=== PATIENT | female | born 1985 | race African-American/Black ===

== ENCOUNTER 2016-04-06 09:33 | Emergency (ER) | payer MEDICAID, OTHER ==
[~2016-04-06 09:33] MED LIST: UNIS25TA2 PO; VITA50TA30 PO
--- NOTE | 2016-04-06 10:22 | PD ---
HPI Chief Complaint nausea, vomiting x3, cramping Date Seen: Apr 06, 2016 Time Seen: 10:31 Travel History International Travel<30 Days: No Contact w/Intl Traveler<30Days: No Known Affected Area: No History of Present Illness HPI 30 year-old at 03/04 (JOSÉ MIGUEL 06/12/16) presented to OB ED with nausea, vomiting, and cramping. It came on acutely at 9am, one hour after eating sausage and egg sandwich at [employer]". Vomit is thick, non-bloody, contains food she just ate. She is still experiencing nausea and cramping, as well as frontal headache that came on after vomiting. Denies vaginal bleeding, loss of fluid or regular contractions. Still feeling baby move. Also having thick vaginal discharge, denies dysuria or frequency. She saw her OB Dr. Marquez at [facility] recently on 04/04. Para: 4 : 7 History Past Medical History Narrative Medical Insomnia Obstetric History Obstetric History History 2 : 7 AB Spontaneous: 0 Term: 4 Mult Births: 0 : 0 Ectopic: 1 AB Induced: 1 Living Children: 4 Past Pregnancies 3 Delivery Gest. Outcome Route Length of Anesthesia Delivery Date Age/Wks # Weight/Sex Labor Location Labor 12/26/04 40 1 Live Vaginal 7 lbs 14 oz - M Epidural [place] No 04/26/06 39 1 Live Vaginal 6 lbs 13 oz - F 9 Hrs Epidural sigifredo No 03/17/12 39 1 Live Vaginal 6 lbs 13 oz - M 5 Hrs Epidural [place] No 03/04/14 39.6 1 Live Vaginal 6 lbs 9 oz - F Epidural sigifredo No Past Surgical History Narrative Surgical Denies Family History Narrative Family History see EMR Social History Alcohol Use: No Tobacco Use: No Substance Abuse: Yes (Marijusol, denies during ) Allergies-Medications (Allergen,Severity, Reaction): Coded Allergies: No Known Allergies (Verified , 04/04/16) Home Meds Active Scripts Promethazine 12.5 Mg Tab12.5 Mg PO Q4H PRN (NAUSEA OR VOMITING) #25 TAB Ref 0 Prov:Nydia Buenrostro MD R1 04/06/16 Promethazine Supp 12.5 Mg Supp12.5 Mg RECTAL Q4H PRN (NAUSEA OR VOMITING) #6 SUPP Ref 0 Prov:Nydia Buenrostro MD R1 04/06/16 W/O A W/ Fe Asparto G (Prenate Pixie 10-0.6-0.4-200 mg)1 Cap Cap Sample #2 Prov:Suyapa Bran 04/04/16 Doxylamine Succinate (Sleep) (Unisom)25 Mg Tab12.5 Mg PO HS PRN (NAUSEA) #30 TAB Ref 1 Prov:Ricky Franks MD R1 03/02/16 Pyridoxine (Vitamin B-6)50 Mg Tab50 Mg PO DAILY #30 TAB Ref 3 Prov:Ricky Franks MD R1 03/02/16 Review of Systems Except as stated in HPI: all other systems reviewed are Neg Physical Exam Narrative GENERAL: Adult gravid female who looks tired/ill. Frowning, appears very tired. SKIN: Warm and dry. No pallor. HEAD: Normocephalic and atraumatic. EYES: No scleral icterus. No injection or drainage. ENT: No nasal drainage noted. Mucous membranes minimally moist. Airway patent. NECK: Supple, trachea midline. No JVD. CARDIOVASCULAR: Regular rate and rhythm without murmurs, gallops, or rubs. Cap refill <2 sec RESPIRATORY: Breath sounds equal bilaterally. No accessory muscle use. BREASTS: Bilateral exam showed no masses , no retractions, no nipple discharge. ABDOMEN/GI: Abdomen soft, non-tender, bowel sounds present, no rebound, no guarding GENITOURINARY: FHT's: Category: [-] I Baseline: [-] 145 Reactive: [-] Yes, with accels Variability: [-] Moderate Decels: [-] No EXTREMITIES: No cyanosis or edema. BACK: Nontender without obvious deformity NEUROLOGICAL: Motor and sensory grossly within normal limits Awake and oriented , not lethargic. Data Data Vital Signs Reviewed: Yes Orders Vital Signs (Adult) .ON ADMISSION (04/06/16 10:22) ^ Labor Status (04/06/16 10:22) ^ Hydration (04/06/16 10:22) Ondansetron Odt (Zofran Odt) (04/06/16 10:30) Acetaminophen (Tylenol) (04/06/16 10:30) Lactated Ringer's 1000 Ml Inj (Lr 1000 M (04/06/16 11:00) Prochlorperazine Inj (Compazine Inj) (04/06/16 11:00) Fentanyl Inj (Fentanyl Inj) (04/06/16 11:00) Wet Prep Profile (04/06/16 11:40) [facility] Medical Record Reviewed: Yes Interpretation(s) 30y AA at 30weeks presenting with nausea/vomiting in classic presentation of acute food poisoning (gastroenteritis). Treatment with supportive care as below. Likely self-limited, to resolve within 24-48 hours. Thick vaginal discharge was evaluated via wet-prep for evidence of Plan Plan: -Hydration with 1L Lactated Ringers IV x1 + PO Hydration -Nausea control with Zofran ODT + Compazine 10mg IV -Pain control with 25 mcg Fentanyl IV + Tylenol 500mg x1 -Supportive care with labor status monitoring and vital signs -Sterile speculum exam and wet prep to evaluate thick vaginal discharge -Anticipate discharge home with Phenergan PO and Phenergan suppository for nausea, encourage PO hydration with water, Tylenol 500mg q6h, as needed, for pain, not to exceed 2g/day SDW: Dr Mixon, Dr Cobb Diagnosis Diagnosis: Primary Impression: Food poisoning Additional Impressions: 30 weeks gestation of Mild dehydration Disposition: DISCHARGE HOME Scripts Promethazine 12.5 Mg Tab12.5 Mg PO Q4H PRN (NAUSEA OR VOMITING) #25 TAB Ref 0 Prov:Nydia Buenrostro MD R1 04/06/16 Promethazine Supp 12.5 Mg Supp12.5 Mg RECTAL Q4H PRN (NAUSEA OR VOMITING) #6 SUPP Ref 0 Prov:Nydia Buenrostro MD R1 04/06/16 Nydia Buenrostro MD R1 Apr 06, 2016 10:22
[2016-04-06] MEDS ORDERED: ACETAMINOPHEN 500 MG CPLT PO ONE (10:30)
[2016-04-06] MEDS ORDERED: ONDANSETRON ODT 4 MG TAB PO PRN (10:30)
--- NOTE | 2016-04-06 10:59 | PD ---
History of Present Illness Date Seen: Apr 06, 2016 History of Present Illness Pt with N& V today , no bleeding . SROM , CTXs , had no meds at home for this. Sees [facility] Will IV hydrate, IV zofran & compazine , Fentanyl Home with Rx for phenergan po & supp Seen with Fam Med Residents agree with eval and plan. Mehdi Mixon II, MD Apr 06, 2016 10:59
[2016-04-06] MEDS ORDERED: LACTATED RINGER'S 1000 ML INJ 1,000 ML IV ONE (11:00)
[2016-04-06] MEDS ORDERED: PROCHLORPERAZINE INJ 10 MG/2 ML VIAL IVS ONE (11:00)
[2016-04-06] MEDS ORDERED: PROM12.54 PO (11:03)
[2016-04-06] MEDS ORDERED: PROM5SUP2 RECTAL (11:03)
[2016-04-06 11:36] VITALS: BP 101/50; PULSE 77; RESP 17; TEMP 98.4
== END 2016-04-06 13:15 | disposition home or self-care (01) ==
LOC: HOBED 09:33
DX: O21.1 Hyperemesis gravidarum with metabolic disturbance (principal); Z3A.30 30 weeks gestation of pregnancy; A05.9 Bacterial foodborne intoxication, unspecified
CPT/HCPCS: 87210; 96361; 96374; 99284; J0780; J3010; J7120

== ENCOUNTER 2016-04-22 17:54 | Inpatient (IN) | payer MEDICAID ==
[~2016-04-22] VITALS: Ht 157.5 cm; Wt 68.6 kg
[2016-04-22] VITALS (75 sets, daily range): BP systolic 53–125; BP diastolic 28–90; PULSE 97–202; RESP 16–28; TEMP 98.1–98.2; O2SAT 99–100
[~2016-04-22 17:54] MED LIST changes: +PROM12.54 PO; +PROM5SUP2 RECTAL
[2016-04-22] MEDS ORDERED: LACTATED RINGER'S 1000 ML INJ 1,000 ML IV PRN (18:32)
[2016-04-22] MEDS ORDERED: LACTATED RINGER'S 1000 ML INJ 1,000 ML IV SCH (18:32)
[2016-04-22] MEDS ORDERED: LIDOCAINE HCL 1% 50 ML VIAL INFIL PRN (18:45)
[2016-04-22] MEDS ORDERED: MINERAL OIL 10 ML VIAL TOPICAL PRN (18:45)
[2016-04-22] MEDS ORDERED: SODIUM CHLORID 0.9% 500 ML INJ 500 ML IV PRN (18:45)
[2016-04-22] MEDS ORDERED: CITRIC ACID-SODIUM CITRATE LIQ 30 ML UDC PO SCH (18:45)
[2016-04-22] MEDS ORDERED: SODIUM CHLORIDE 0.9% FLUSH 5 ML FLUSH IV PRN ×2 (18:45→23:45)
[2016-04-22] MEDS ORDERED: OXYTOCIN 30 UNITS-500ML PREMIX 500 ML IV ONE ×2 (18:45→23:45)
[2016-04-22] MEDS ORDERED: LIDOCAINE HCL 1% 50 ML VIAL I-DERMAL PRN (18:45)
[2016-04-22] MEDS ORDERED: SODIUM CHLOR 0.9% 1000 ML INJ 1,000 ML IV PRN (18:52)
[2016-04-22 19:31] LABS: AUTOMATED NEUTROPHIL # 20.3 TH/MM3 (1.8-7.7); BASOPHIL % 0.1 % (0.0-2.0); EOSINOPHIL # 0.1 TH/MM3 (0-0.4); EOSINOPHIL % 0.4 % (0.0-4.0); HEMATOCRIT 26.6 % (35.0-46.0); HEMO FLAGS DIFF FINAL; LYMPHOCYTE # 2.2 TH/MM3 (1.0-4.8); MEAN CELL VOLUME 90.8 FL (80.0-100.0); MEAN CORPUSCULAR HEMOGLOBIN 30.9 PG (27.0-34.0); MONO % 7.2 % (0.0-8.0); NEUT % 83.3 % (16.0-70.0); PLATELET COUNT 150 TH/MM3 (150-450); RED BLOOD COUNT 2.93 MIL/MM3 (4.00-5.30); RED CELL DISTRIBUTION WIDTH 13.3 % (11.6-17.2); WHITE BLOOD COUNT 24.3 TH/MM3 (4.0-11.0)
--- NOTE | 2016-04-22 19:34 | HHI.HP ---
HPI Chief Complaint Abdominal pain Date Seen: Apr 22, 2016 Travel History International Travel<30 Days: No Contact w/Intl Traveler<30Days: No Known Affected Area: No History of Present Illness HPI This patient is 30-year-old black female A2 at 32-33 weeks followed for [facility] for , who is presenting with severe abdominal pain for the last several hours no bleeding or leakage of fluid. She is lety every minute area heart tones could not be discerned with toco an ultrasound was done at the bedside by me which shows no cardiac activity and a breech fetus and a large blood clot associated with the placenta. OB diagnostic has come in and confirmed the diagnosis of demise secondary to abruption Para: 3 : 6 Miscarriage: 1 History Obstetric History Obstetric History Vaginal deliveries, 1 miscarriage and 1 ectopic was treated with methotrexate that required a D&C afterwards. Past Surgical History Narrative Surgical D&C Family History Family History: Negative Social History Narrative Social History Patient does have a history of marijuana use in the past Alcohol Use: No Tobacco Use: Yes Substance Abuse: No Allergies-Medications (Allergen,Severity, Reaction): Coded Allergies: No Known Allergies (Verified , 04/22/16) Home Meds Active Scripts Promethazine 12.5 Mg Tab12.5 Mg PO Q4H PRN (NAUSEA OR VOMITING) #25 TAB Ref 0 Prov:Nydia Buenrostro MD R1 04/06/16 Promethazine Supp 12.5 Mg Supp12.5 Mg RECTAL Q4H PRN (NAUSEA OR VOMITING) #6 SUPP Ref 0 Prov:Nydia Buenrostro MD R1 04/06/16 W/O A W/ Fe Asparto G (Prenate Pixie 10-0.6-0.4-200 mg)1 Cap Cap Sample #2 Prov:Suyapa Bran 04/04/16 Doxylamine Succinate (Sleep) (Unisom)25 Mg Tab12.5 Mg PO HS PRN (NAUSEA) #30 TAB Ref 1 Prov:Ricky Franks MD R1 03/02/16 Pyridoxine (Vitamin B-6)50 Mg Tab50 Mg PO DAILY #30 TAB Ref 3 Prov:Ricky Franks MD R1 03/02/16 Review of Systems General / Constitutional: No: Fever, Weight Gain, Chills, Other Eyes: No: Diploplia, Blurred Vision, Visual changes, Pain, Photophobia HENT: No: Headaches, Vertigo, Lightheadedness Cardiovascular: No: Irregular Rhythm, Chest Pain or Discomfort, Palpitations, Tachycardia, Syncope, Varicosities, Edema, Cyanosis Respiratory: No: Cough, Short of Breath, Other Gastrointestinal: Abdominal Pain, No: Nausea, Vomiting, Diarrhea Genitourinary: No: Decreased Urinary Output, Oliguria Musculoskeletal: No: Limited ROM, Weakness, Cramping, Edema, Pain Skin: No Rash, No Itching, No Dryness, No Lumps, No Change in Pigmentation, No Change in Nails, No Alopecia, No Lesions Neurologic: No: Weakness, Dizziness, Syncope, Focal Abnormalities, Coordination Problem, Headache, Slurred Speech, Seizures Psychiatric: No: Depression, Suicidal Ideations, Homicidal Ideation Endocrine: No: Heat Intolerance, Cold Intolerance, Polydipsia, Polyuria, Other Physical Exam Vital Signs Date Time Temp Pulse Resp B/P Pulse Ox O2 Delivery O2 Flow Rate FiO2 04/22/16 18:30 20 04/22/16 18:17 104 113/72 Narrative GENERAL: Well-nourished, well-developed patient who is in moderate to severe distress from severe abdominal pain. SKIN: Warm and dry. HEAD: Normocephalic and atraumatic. EYES: No scleral icterus. No injection or drainage. ENT: No nasal drainage noted. Mucous membranes pink. Airway patent. NECK: Supple, trachea midline. No JVD. CARDIOVASCULAR: Regular rate and rhythm without murmurs, gallops, or rubs. RESPIRATORY: Breath sounds equal bilaterally. No accessory muscle use. BREASTS: Bilateral exam showed no masses , no retractions, no nipple discharge. ABDOMEN/GI: Abdomen soft, tender, bowel sounds present, no rebound, no guarding Gravid to [32-] weeks size Fundal Height: [-32] uterus is tender it's very firm continually GENITOURINARY: External Genitalia: intact and normal in appearance , there is no bleeding , no blood in vagina Cervix: [-Cervix dilated loose 1 cm] Dilatation: [-1] Effacement: [-70] Station: [-3] Presentation: [-breech] Membranes: [intact ] Uterine Contractions: [Lety every minute is firmly great pain-] FHT's: Absent EXTREMITIES: No cyanosis or edema. BACK: Nontender without obvious deformity. No CVA tenderness. NEUROLOGICAL: Awake and alert. Motor and sensory grossly within normal limits. Five out of 5 muscle strength in all muscle groups. Normal speech. Data Data Orders Admit To Inpatient (04/22/16 ) Vital Signs (Adult) .Per protocol (04/22/16 18:32) ^ Amnioinfusion (04/22/16 18:32) Urinary Catheter Management .ONCE (04/22/16 18:32) Lactated Ringer's 1000 Ml Inj (Lr 1000 M (04/22/16 18:32) Lactated Ringer's 1000 Ml Inj (Lr 1000 M (04/22/16 18:32) Sodium Chlorid 0.9% 500 Ml Inj (Ns 500 M (04/22/16 18:45) Sodium Chlor 0.9% 1000 Ml Inj (Ns 1000 M (04/22/16 18:52) Lidocaine 1% Inj (50 Ml) (Xylocaine 1% I (04/22/16 18:45) Citric Acid-Sodium Citrate Liq (Bicitra (04/22/16 18:45) Fentanyl Inj (Fentanyl Inj) (04/22/16 18:45) Fentanyl Inj (Fentanyl Inj) (04/22/16 18:45) Complete Blood Count With Diff (04/22/16 18:32) Hold Clot (04/22/16 18:32) Abo/Rh Blood Type (04/22/16 18:32) Urinalysis - C+S If Indicated (04/22/16 18:32) Type And Screen (04/22/16 18:32) Resp Oxygen Non Rebreathe Mask (04/22/16 ) ^ Epidural / Intrathecal Infus (04/22/16 18:32) Oxytocin 30 Units-500ml Premix (Pitocin (04/22/16 18:45) Lidocaine 1% Inj (50 Ml) (Xylocaine 1% I (04/22/16 18:45) Light Mineral Oil (Muri-Lube Oil) (04/22/16 18:45) Us Ob Limited (04/22/16 ) Admit To Inpatient (04/22/16 ) Vital Signs (Adult) Q4H (04/22/16 18:35) Activity Oob Ad Ernestine (04/22/16 18:35) Sodium Chloride 0.9% Flush (Ns Flush) (04/22/16 18:45) Sodium Chloride 0.9% Flush (Ns Flush) (04/22/16 21:00) Prothrombin Time / Inr (Pt) (04/22/16 18:35) Act Partial Throm Time (Ptt) (04/22/16 18:35) Drug Screen, Random Urine (04/22/16 18:35) Kleihauer Betke ( Hgb) (04/22/16 18:35) Fibrinogen (04/22/16 18:36) Ob (2e) Additional Admit Info (04/22/16 18:42) Vital Signs (Adult) .ON ADMISSION (04/22/16 18:51) ^ Labor Status (04/22/16 18:51) Ob/Psych Drug Screen, Urine (04/22/16 18:51) Lorazepam Inj (Ativan Inj) (04/22/16 19:00) Comprehensive Metabolic Panel (04/22/16 19:17) Labs Ultrasound done to bedside shows 32 weeks size breech fetus with no cardiac motion placenta is anterior and is been completely abrupted off the anterior wall with large blood clot involving the placenta, normal AFV , Assessment/Plan Assessment and Plan This patient is a 30-year-old black female to 32 weeks 5 days presents complaining of severe abdominal pain. On ultrasound on OB ED is noted to have no cardiac motion large placental abruption seen OB diagnostics who came in and scanned the patient. She is in severe pain from continual contractions one after another every minute. She had no vaginal bleeding whatsoever, she denies any Trauma/ car wreck anything that caused this, denies drug use. Plan to admit the patient check abruption labs place a Chand to document urine output and at this point consider vaginal delivery for this patient would not want to do a for an nonviable baby. Would administer an epidural give some IV sedation rupture her membranes and anticipate vaginal delivery as long as her lab and her condition will let us do that, this is all discussed with the patient and her mother/ family Mehdi Mixon II, MD Apr 22, 2016 19:33
[2016-04-22] MEDS ORDERED: fentaNYL 2MCG-BUPIV 0.125% INJ 100 ML ONE (19:40)
[2016-04-22 19:41] LABS: APTT (PATIENT) 47.3 SEC (24.3-30.1); INTERNATIONAL NORMALIZED RATIO 1.3 RATIO
[2016-04-22 19:58] LABS: BLOOD, URINE TRACE (NEG); COMMENT (UR) CULT NOT INDICATED; CULTURE IF INDICATED CULT NOT INDICATED; GLUCOSE,URINE NEG (NEG); HYALINE CAST, URINE 1 /lpf (RARE); KETONE, URINE TRACE mg/dL (NEG); MUCUS URINE FEW /lpf (OCC); NITRITE,URINE NEG (NEG); PH, URINE 7.5 (5.0-8.5); SQUAMOUS EPITHELIAL CELL URINE <1 /hpf (0-5); URINE COLOR YELLOW (YELLW/STRAW)
[2016-04-22] MEDS ORDERED: ePHEDrine/NS 25 MG/5 ML SYR ONE ×2 (20:31→21:14)
[2016-04-22] MEDS ORDERED: ONDANSETRON HCL 4 MG/2 ML VIAL ONE (20:35)
[2016-04-22 20:45] LABS: AMPHETAMINE, URINE NEG (NEG); BARBITURATES, URINE NEG (NEG); COCAINE, URINE NEG (NEG)
[2016-04-22] MEDS ORDERED: SODIUM CHLORIDE 0.9% FLUSH 5 ML FLUSH IV SCH (21:00)
[2016-04-22 21:09] LABS: ALKALINE PHOSPHATASE 134 U/L (45-117); ALT (GPT) 11 U/L (10-53); ANION GAP 10 MEQ/L (5-15); AST (GOT) 15 U/L (15-37); BICARBONATE 23.2 MEQ/L (21.0-32.0); BLOOD UREA NITROGEN 7 MG/DL (7-18); CHLORIDE 107 MEQ/L (98-107); GLOMERULAR FILTRATION RATE 151 ML/MIN (>89); POTASSIUM 3.8 MEQ/L (3.5-5.1); SODIUM (NA) 140 MEQ/L (136-145); TOTAL BILIRUBIN ADULT 0.3 MG/DL (0.2-1.0)
--- NOTE | 2016-04-22 21:54 | PD.LABORPN ---
Subjective Subjective Patient is a 32 week intrauterine demise secondary to abruption , she is laboring now 5 cm 80% -2 with a small parts presenting through the cervix lety every minute &she is bleeding First unit of blood is now going and second units ordered with 2 units of fresh frozen antenna cryoprecipitate due to that the DIC developing, she has has a fibrinogen of 47,000, PT PTT are out somewhat and her H&H is 9 and 26 she has an epidural for pain relief. Currently cervix 5 cm dilated but due to the bleeding she is experiencing without weight long for vaginal delivery will give her 1 hour to make significant change in the cervix she does continue would not deliver by has hysterotomy Objective Vital Signs Vital Signs Date Time Temp Pulse Resp B/P Pulse Ox O2 Delivery O2 Flow Rate FiO2 04/22/16 21:24 122 101/47 04/22/16 21:21 137 93/46 04/22/16 21:20 124 100 04/22/16 21:18 115 104/55 04/22/16 21:15 120 100/50 100 04/22/16 21:12 98.2 18 04/22/16 21:12 128 102/52 04/22/16 21:10 100 04/22/16 21:10 137 04/22/16 21:09 131 101/46 04/22/16 21:08 142 86/40 04/22/16 21:06 202 81/52 04/22/16 21:05 100 04/22/16 21:05 123 04/22/16 21:05 123 101/46 04/22/16 21:03 137 86/51 04/22/16 21:00 100 04/22/16 21:00 125 04/22/16 21:00 101/42 04/22/16 20:57 132 96/47 04/22/16 20:55 100 04/22/16 20:55 125 04/22/16 20:54 123 105/44 04/22/16 20:51 125 100/40 04/22/16 20:50 139 28 99 04/22/16 20:48 153 101/78 04/22/16 20:45 131 96/43 100 1817 20:45 130 04/22/16 20:42 102/82 04/22/16 20:40 22 04/22/16 20:40 112 100 2/18/17 20:39 112 113/50 2/18/17 20:36 111 118/58 2/18/17 20:35 100 2/18/17 20:35 134 2/18/17 20:33 142 87/32 2/18/17 20:31 157 103/33 2/18/17 20:30 143 2/18/17 20:30 99 2/18/17 20:29 88/50 2/18/17 20:27 145 65/51 2/18/17 20:25 133 2/18/17 20:25 99 2/18/17 20:24 129 106/53 2/18/17 20:21 139 84/42 2/18/17 20:20 100 2/18/17 20:20 157 2/18/17 20:18 158 91/47 2/18/17 20:17 162 72/45 2/18/17 20:15 133 2/18/17 20:15 92/38 2/18/17 20:15 100 2/18/17 20:12 118 85/62 2/18/17 20:10 127 2/18/17 20:10 100 2/18/17 20:09 188 106/90 2/18/17 20:06 106 103/56 2/18/17 18:30 20 2/18/17 18:17 104 113/72 Objective Mehdi Mixon II, MD Apr 22, 2016 21:54
[2016-04-22] MEDS ORDERED: OXYTOCIN 10 UNIT/ML AMP ONE (23:05)
[2016-04-22] MEDS ORDERED: METHYLERGONOVINE MALEATE 0.2 MG/ML VIAL ONE (23:05)
[2016-04-22] MEDS ORDERED: SIMETHICONE 80 MG CHEWABLE TAB PO PRN (23:45)
[2016-04-22] MEDS ORDERED: ONDANSETRON HCL 4 MG/2 ML VIAL IV PUSH PRN (23:45)
[2016-04-22] MEDS ORDERED: oxyCODONE/ACETAMINOPHEN 5 MG/325 MG TAB PO PRN (23:45)
[2016-04-22] MEDS ORDERED: DOCUSATE SODIUM 50 MG/SENNA 8.6 MG TAB PO PRN (23:45)
[2016-04-23] VITALS (14 sets, daily range): BP systolic 103–119; BP diastolic 57–65; PULSE 74–108; RESP 16–18; TEMP 97.7–98.8; O2SAT 95–99
[2016-04-23] MEDS ORDERED: MORPHINE SULFATE PF 5 MG/10 ML VIAL ONE (00:02)
[2016-04-23] MEDS ORDERED: DO NOT ADM ANY ANTICOAGULANT DRUGS XX PRN (00:15)
[2016-04-23] MEDS ORDERED: DO NOT ADMINISTER ANTICOAGULANTS XX PRN (00:30)
[2016-04-23] MEDS ORDERED: NO SYSTEM NARCOTICS XX PRN (00:30)
[2016-04-23] MEDS ORDERED: [UNRECOGNIZED DRUG - OTHER] IV ONE (00:30)
[2016-04-23] MEDS ORDERED: fentaNYL 2MCG-BUPIV 0.125% 100 ML EPIDURAL SCH (00:30)
[2016-04-23] MEDS ORDERED: ePHEDrine/NS 25 MG/5 ML SYR IV PRN (00:30)
[2016-04-23 00:53] LABS: MEAN CELL VOLUME 85.9 FL (80.0-100.0); MEAN CORPUSCULAR HEMOGLOBIN 29.6 PG (27.0-34.0); MEAN CORPUSCULAR HGB CONC 34.4 % (32.0-36.0); PLATELET COUNT 58 TH/MM3 (150-450); RED CELL DISTRIBUTION WIDTH 14.9 % (11.6-17.2); WHITE BLOOD COUNT 18.3 TH/MM3 (4.0-11.0)
[2016-04-23] MEDS: SODIUM CHLOR 0.9% 1000 ML INJ 1,000 ML IV SCH ×3 (00:55→17:58)
--- NOTE | 2016-04-23 00:55 | PD.CONS ---
HPI Service Critical Care Medicine Consult Requested By Primary Care Physician No Primary Care Physician History of Present Illness History of Present Illness HPI This patient is 30-year-old black female A2 at 32-33 weeks WHO PRESENTED with severe abdominal pain for several hours, no bleeding or leakage of fluid. Patient was confirmed with diagnosis of demise secondary to abruption. She had significant bleeding and underwent hysterotomy for removal of fetus and placenta. She was ordered 2 units PRBCs, 2 units FFP and 1 unit cryoprecipitate for coagulopathy/DIC. Patient had an epidural placed to the procedure and tolerated procedure well following which she was transferred to PACU. She was hypotensive intraoperatively received fluid boluses as well as blood products. I was contacted by Dr. Mixon following patient's arrival in PACU for critical care consult. When I evaluated the patient in PACU she was laying comfortably not in any acute distress. She had just finished her second unit of PRBCs and was completing a fluid bolus with normal salt and was maintaining her blood pressure. History was obtained by reviewing records and discussion with Dr. Mixon and PACU nursing staff. History (Limited) History Obstetric History Obstetric History Vaginal deliveries, 1 miscarriage and 1 ectopic was treated with methotrexate that required a D&C afterwards. Past Surgical History Narrative Surgical D&C Family History Family History: Negative Social History Narrative Social History Patient does have a history of marijuana use in the past Alcohol Use: No Tobacco Use: Yes Substance Abuse: No Allergies-Medications Allergies-Medications (Allergen,Severity, Reaction): Coded Allergies: No Known Allergies (Verified , 04/22/16) Home Meds Active Scripts Promethazine 12.5 Mg Tab12.5 Mg PO Q4H PRN (NAUSEA OR VOMITING) #25 TAB Ref 0 Prov:Nydia Buenrostro MD R1 04/06/16 Promethazine Supp 12.5 Mg Supp12.5 Mg RECTAL Q4H PRN (NAUSEA OR VOMITING) #6 SUPP Ref 0 Prov:Nydia Buenrostro MD R1 04/06/16 W/O A W/ Fe Asparto G (Prenate Pixie 10-0.6-0.4-200 mg)1 Cap Cap Sample #2 Prov:Suyapa Barn 04/04/16 Doxylamine Succinate (Sleep) (Unisom)25 Mg Tab12.5 Mg PO HS PRN (NAUSEA) #30 TAB Ref 1 Prov:Ricky Franks MD R1 03/02/16 Pyridoxine (Vitamin B-6)50 Mg Tab50 Mg PO DAILY #30 TAB Ref 3 Prov:Ricky Franks MD R1 03/02/16 Review of Systems ROS Limitations: Clinical Condition Physical Exam Vital Signs Vital Signs Date Time Temp Pulse Resp B/P Pulse Ox O2 Delivery O2 Flow Rate FiO2 04/22/16 22:24 100 87/49 04/22/16 22:21 101 74/49 04/22/16 22:20 98 04/22/16 22:18 97 86/45 04/22/16 22:15 98 04/22/16 22:15 85/46 04/22/16 22:12 81/43 04/22/16 22:12 101 04/22/16 22:10 104 04/22/16 22:09 103 83/47 04/22/16 22:06 107 86/49 04/22/16 22:05 106 04/22/16 22:03 106 78/44 04/22/16 22:00 109 78/44 04/22/16 22:00 111 04/22/16 21:57 111 79/42 04/22/16 21:55 113 04/22/16 21:54 114 71/39 04/22/16 21:51 114 73/36 04/22/16 21:50 117 04/22/16 21:48 117 66/35 04/22/16 21:47 119 65/33 04/22/16 21:45 119 53/28 04/22/16 21:42 122 62/34 04/22/16 21:40 123 04/22/16 21:39 126 74/40 04/22/16 21:36 125 66/40 04/22/16 21:35 121 100 04/22/16 21:33 118 80/37 04/22/16 21:30 150 96/45 100 04/22/16 21:27 137 97/51 04/22/16 21:25 128 100 18 21:24 122 101/47 04/22/16 21:21 137 93/46 04/22/16 21:20 124 100 04/22/16 21:18 115 104/55 04/22/16 21:15 120 100/50 100 2/18/17 21:12 98.2 18 2/18/17 21:12 128 102/52 2/18/17 21:10 100 2/18/17 21:10 137 2/18/17 21:09 131 101/46 2/18/17 21:08 142 86/40 2/18/17 21:06 202 81/52 2/18/17 21:05 100 2/18/17 21:05 123 2/18/17 21:05 123 101/46 2/18/17 21:03 137 86/51 2/18/17 21:00 100 2/18/17 21:00 125 2/18/17 21:00 101/42 2/18/17 20:57 132 96/47 2/18/17 20:55 100 2/18/17 20:55 125 2/18/17 20:54 123 105/44 2/18/17 20:51 125 100/40 2/18/17 20:50 139 28 99 2/18/17 20:48 153 101/78 2/18/17 20:45 131 96/43 100 2/18/17 20:45 130 2/18/17 20:42 102/82 2/18/17 20:40 22 2/18/17 20:40 112 100 2/18/17 20:39 112 113/50 2/18/17 20:36 111 118/58 2/18/17 20:35 100 2/18/17 20:35 134 2/18/17 20:33 142 87/32 2/18/17 20:31 157 103/33 2/18/17 20:30 143 2/18/17 20:30 99 2/18/17 20:29 88/50 2/18/17 20:27 145 65/51 2/18/17 20:25 133 2/18/17 20:25 99 2/18/17 20:24 129 106/53 2/18/17 20:21 139 84/42 2/18/17 20:20 100 2/18/17 20:20 157 2/18/17 20:18 158 91/47 2/18/17 20:17 162 72/45 2/18/17 20:15 133 2/18/17 20:15 92/38 2/18/17 20:15 100 2/18/17 20:12 118 85/62 04/22/16 20:10 127 04/22/16 20:10 100 04/22/16 20:09 188 106/90 04/22/16 20:06 106 103/56 04/22/16 18:30 20 04/22/16 18:17 104 113/72 Physical Exam HEENT/Neuro: Pallor present, No icterus, tongue moist, STEPHANIE, drowsy, easily arousable, nonfocal grossly, moving all 4 extremities Neck: No JVD Chest/pulmonary: CTA bilaterally Cardiovascular: S1-S2 regular no gallop or murmur GI/abdomen: Soft, enlarged uterus, Stuart wrap/dressing over surgical incision site clean dry and intact, bowel sounds are appreciated Extremities: Warm bilaterally, no edema Laboratory Laboratory Tests Test 04/22/16 04/22/16 04/22/16 04/22/16 19:00 19:15 20:23 21:59 White Blood Count 24.3 Red Blood Count 2.93 Hemoglobin 9.1 Hematocrit 26.6 Mean Corpuscular Volume 90.8 Mean Corpuscular Hemoglobin 30.9 Mean Corpuscular Hemoglobin 34.0 Concent Red Cell Distribution Width 13.3 Platelet Count 150 Mean Platelet Volume 8.4 Neutrophils (%) (Auto) 83.3 Lymphocytes (%) (Auto) 9.0 Monocytes (%) (Auto) 7.2 Eosinophils (%) (Auto) 0.4 Basophils (%) (Auto) 0.1 Neutrophils # (Auto) 20.3 Lymphocytes # (Auto) 2.2 Monocytes # (Auto) 1.7 Eosinophils # (Auto) 0.1 Basophils # (Auto) 0.0 CBC Comment DIFF FINAL Differential Comment Hemoglobin F () 0.0 Prothrombin Time 14.0 Prothromb Time International 1.3 Ratio Activated Partial 47.3 Thromboplast Time Fibrinogen 47 Sodium Level 140 Potassium Level 3.8 Chloride Level 107 Carbon Dioxide Level 23.2 Anion Gap 10 Blood Urea Nitrogen 7 Creatinine 0.57 Estimat Glomerular Filtration 151 Rate Random Glucose 108 Calcium Level 8.5 Total Bilirubin 0.3 Aspartate Amino Transf 15 (AST/SGOT) Alanine Aminotransferase 11 (ALT/SGPT) Alkaline Phosphatase 134 Total Protein 6.3 Albumin 2.7 Blood Type A POSITIVE Antibody Screen NEGATIVE Band and Hold Urine Color YELLOW Urine Turbidity CLEAR Urine pH 7.5 Urine Specific Bishop 1.012 Urine Protein 100 Urine Glucose (UA) NEG Urine Ketones TRACE Urine Occult Blood TRACE Urine Nitrite NEG Urine Bilirubin NEG Urine Urobilinogen LESS THAN 2.0 Urine Leukocyte Esterase NEG Urine RBC 8 Urine WBC 1 Urine Squamous Epithelial <1 Cells Urine Hyaline Casts 1 Urine Mucus FEW Microscopic Urinalysis Comment CULT NOT INDICATED Urine Opiates Screen NEG Urine Barbiturates Screen NEG Urine Amphetamines Screen NEG Urine Benzodiazepines Screen NEG Urine Cocaine Screen NEG Urine Cannabinoids Screen POS Crossmatch Leukocyte-Reduced Leukocyte-Reduced Red Blood Red Blood Cells Cells Blood Bank Comment Test 04/22/16 23:00 Blood Type A POSITIVE Crossmatch Leukocyte-Reduced Red Blood Cells Blood Bank Comment Result Diagram: 04/22/16189904/22/161899 Assessment and Plan Assessment and Plan 30-year-old female with: 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 Epidural catheter in place, anesthesia to remove following correction of coagulopathy. Cardiovascular: Aggressive fluid resuscitation, completing fluid bolus, blood products for hypotension. Pulmonary: Supplemental O2 as needed. GI/liver: Nothing by mouth for now Renal/: IV hydration, strict intake output, monitor and replete electro lites , follow BUN/creatinine. ID: Perioperative antibiotic prophylaxis per Dr. Mixon Endocrine: Watch for hyperglycemia Ob: s/p hysterotomy for demise with abruptio placentae with DIC Heme: Status post 2 units PRBCs, 2 units FFP and 1 unit cryoprecipitate for DIC/ coagulopathy. Awaiting repeat labs to decide further transfusion. Follow CBC and coags. Will order 1 g calcium chloride IV piggyback in view of coagulopathy and multiple units of blood product transfusions. Prophylaxis: SCDs. No heparin in view of coagulopathy. D/W dr. Mixon earlier. Condition critical. Time spent on critical care excluding procedures 40 minutes Agusto Kamara MD Apr 23, 2016 00:55
[2016-04-23] MEDS ORDERED: CALCIUM CHLORIDE INJ 1 GM in DEXTROSE 5% IN WATER 100ML INJ 100 ML IV ONE ×2 (01:00)
[2016-04-23 01:05] LABS: REVIEW FLAG FINAL
[2016-04-23] MEDS ORDERED: SODIUM CHLOR 0.9% 250 ML INJ 250 ML IV ONE ×2 (01:30)
[2016-04-23 01:33] LABS: BICARBONATE 21.1 MEQ/L (21.0-32.0); POTASSIUM 3.9 MEQ/L (3.5-5.1)
[2016-04-23 01:35] LABS: APTT (PATIENT) 36.6 SEC (24.3-30.1); INTERNATIONAL NORMALIZED RATIO 1.1 RATIO; PROTHROMBIN TIME - PATIENT 12.6 SEC (9.8-11.6)
[2016-04-23 01:36] LABS: FIBRINOGEN 103 mg/dL (227-377)
[2016-04-23 02:20] LABS: CALCIUM-PROTEIN CORRECTED 8.9 MG/DL (8.5-10.1)
[2016-04-23] MEDS: LACTATED RINGER'S 1000 ML INJ 1,000 ML IV SCH ×2 (04:35→14:35)
[2016-04-23] MEDS: oxyCODONE/ACETAMINOPHEN 5 MG/325 MG TAB PO PRN ×4 (05:09→21:12)
[2016-04-23 05:30] LABS: MEAN CORPUSCULAR HEMOGLOBIN 30.3 PG (27.0-34.0); MEAN CORPUSCULAR HGB CONC 35.6 % (32.0-36.0); PLATELET COUNT 96 TH/MM3 (150-450); RED BLOOD COUNT 2.36 MIL/MM3 (4.00-5.30); WHITE BLOOD COUNT 17.3 TH/MM3 (4.0-11.0)
[2016-04-23 05:41] LABS: APTT (PATIENT) 33.6 SEC (24.3-30.1); PROTHROMBIN TIME - PATIENT 11.1 SEC (9.8-11.6)
[2016-04-23 05:47] LABS: REVIEW FLAG FINAL
[2016-04-23 05:49] LABS: HEMATOCRIT 20.1 % (35.0-46.0)
[2016-04-23 05:52] LABS: ALKALINE PHOSPHATASE 76 U/L (45-117); ALT (GPT) 12 U/L (10-53); ANION GAP 11 MEQ/L (5-15); AST (GOT) 21 U/L (15-37); BICARBONATE 23.5 MEQ/L (21.0-32.0); BLOOD UREA NITROGEN 6 MG/DL (7-18); CHLORIDE 109 MEQ/L (98-107); GLOMERULAR FILTRATION RATE 198 ML/MIN (>89); POTASSIUM 3.5 MEQ/L (3.5-5.1); SODIUM (NA) 143 MEQ/L (136-145); TOTAL BILIRUBIN ADULT 0.3 MG/DL (0.2-1.0)
[2016-04-23] MEDS ORDERED: diphenhydrAMINE HCL 50 MG/ML VIAL IV ONE (07:45)
[2016-04-23] MEDS ORDERED: DEXAMETHASONE SOD PHOS 4 MG/ML VIAL IV ONE (07:45)
[2016-04-23] MEDS: SODIUM CHLORIDE 0.9% FLUSH 5 ML FLUSH IV SCH ×2 (08:43→21:00)
--- NOTE | 2016-04-23 08:44 | HHI.OB ---
Subjective Post Operative Day: 1 Remarks Patient's postop day 1 status post for abruption demise with resulting DIC AF VSS Patient is awake and alert in the IMC unit her vaginal bleeding is minimal CV-RRR, lungs clear, abdomen 2+ distention with adequate bowel sounds and a bandage is dry Lab this morning shows a hematocrit of 20% hemoglobin 7, fibrinogen up to 151 , PT PTT decreasing appropriately Impression is status post for demise due to massive abruption with resulting DIC Plan is to continue another couple units of blood to get her hematocrit on up And possibly move out of the IMC unit later today or in the morning Once again like to thank the [facility] [place] and the historical records administrator last night assistance greatly appreciated Objective Vitals/I&O Vital Signs Date Time Temp Pulse Resp B/P Pulse Ox O2 Delivery O2 Flow Rate FiO2 04/23/16 07:15 97.8 108 16 116/58 96 04/23/16 06:09 16 04/23/16 06:00 103 04/23/16 04:56 1 04/23/16 04:16 98.8 106 18 119/64 99 04/23/16 04:00 98.8 106 18 119/64 99 04/23/16 04:00 106 04/23/16 02:13 98.8 106 16 103/64 96 04/23/16 02:00 98.8 106 16 103/64 96 04/23/16 02:00 106 04/23/16 02:00 109 14 149/66 99 Room Air 04/23/16 01:45 98.3 107 14 118/71 99 04/23/16 01:45 98.3 107 14 118/71 99 Room Air 04/23/16 01:30 99 15 150/62 99 Room Air 04/23/16 01:15 113 16 150/70 98 Room Air 04/23/16 01:00 112 17 146/65 99 Room Air 04/23/16 00:45 108 14 149/61 98 Room Air 04/23/16 00:30 111 14 138/63 98 Room Air 04/23/16 00:15 111 16 110/55 97 Room Air 04/23/16 00:15 97.9 112 15 110/55 99 04/23/16 00:00 109 15 118/43 99 Room Air 2/18/17 23:53 98.1 106 16 125/45 99 2/18/17 23:43 98.1 113 16 78/46 98 Room Air 18/17 22:27 98 89/53 218/17 22:25 102 91/50 218/17 22:24 100 87/49 2/18/17 22:21 101 74/49 218/17 22:20 98 218/17 22:18 97 86/45 218/17 22:15 98 218/17 22:15 85/46 218/17 22:12 81/43 218/17 22:12 101 18/17 22:10 104 18/17 22:09 103 83/47 218/17 22:06 107 86/49 218/17 22:05 106 18/17 22:03 106 78/44 218/17 22:00 109 78/44 218/17 22:00 111 18/17 21:57 111 79/42 218/17 21:55 113 18/17 21:54 114 71/39 2/18/17 21:51 114 73/36 2/18/17 21:50 117 2/18/17 21:48 117 66/35 2/18/17 21:47 119 65/33 2/18/17 21:45 119 53/28 2/18/17 21:42 122 62/34 2/18/17 21:40 123 2/18/17 21:39 126 74/40 2/18/17 21:36 125 66/40 2/18/17 21:35 121 100 2/18/17 21:33 118 80/37 2/18/17 21:30 150 96/45 100 2/18/17 21:27 137 97/51 2/18/17 21:25 128 100 2/18/17 21:24 122 101/47 2/18/17 21:21 137 93/46 2/18/17 21:20 124 100 2/18/17 21:18 115 104/55 2/18/17 21:15 120 100/50 100 2/18/17 21:12 98.2 18 2/18/17 21:12 128 102/52 2/18/17 21:10 100 2/18/17 21:10 137 2/18/17 21:09 131 101/46 2/18/17 21:08 142 86/40 2/18/17 21:06 202 81/52 2/18/17 21:05 100 2/18/17 21:05 123 2/18/17 21:05 123 101/46 2/18/17 21:03 137 86/51 2/18/17 21:00 100 2/18/17 21:00 125 2/18/17 21:00 101/42 2/18/17 20:57 132 96/47 2/18/17 20:55 100 2/18/17 20:55 125 2/18/17 20:54 123 105/44 2/18/17 20:51 125 100/40 2/18/17 20:50 139 28 99 2/18/17 20:48 153 101/78 2/18/17 20:45 131 96/43 100 2/18/17 20:45 130 2/18/17 20:42 102/82 2/18/17 20:40 22 2/18/17 20:40 112 100 2/18/17 20:39 112 113/50 2/18/17 20:36 111 118/58 2/18/17 20:35 100 2/18/17 20:35 134 2/18/17 20:33 142 87/32 2/18/17 20:31 157 103/33 2/18/17 20:30 143 2/18/17 20:30 99 2/18/17 20:29 88/50 2/18/17 20:27 145 65/51 2/18/17 20:25 133 2/18/17 20:25 99 2/18/17 20:24 129 106/53 2/18/17 20:21 139 84/42 2/18/17 20:20 100 2/18/17 20:20 157 2/18/17 20:18 158 91/47 2/18/17 20:17 162 72/45 2/18/17 20:15 133 2/18/17 20:15 92/38 2/18/17 20:15 100 2/18/17 20:12 118 85/62 2/18/17 20:10 127 2/18/17 20:10 100 2/18/17 20:09 188 106/90 2/18/17 20:06 106 103/56 04/22/16 18:30 20 04/22/16 18:17 104 113/72 Intake & Output 04/23/16 04/23/16 07:00 19:00 Intake Total 6283 ml Output Total 3150 ml Balance 3133 ml Intake Oral 720 ml IV Total 758 ml Packed Cells 1075 ml Platelets 506 ml Cryoprecipitate 224 ml Other 3000 ml Output Urine Total 1150 ml Estimated Blood Loss 2000 ml # Bowel Movements 0 # Sanitary Pads 1 Pads 1 Pads 1 Pads Result Diagram: 04/23/16 0510 04/23/16 0510 Objective Remarks GENERAL: Well-nourished, well-developed patient. CARDIOVASCULAR: Regular rate and rhythm without murmurs, gallops, or rubs. RESPIRATORY: Breath sounds equal bilaterally. No accessory muscle use. ABDOMEN/GI: Abdomen soft, non-tender, bowel sounds present. Incision: Clean, dry and intact. Fundus: Firm, non-tender at umbilicus. GENITOURINARY: Light to moderate bleeding. EXTREMITIES: No cyanosis or edema, non-tender, without signs of DVT. Medications and IVs Current Medications Medications (Trade) Dose Ordered Sig/Sorin Route Start Time Stop Time Status Last Admin (Lr 1000 ml Inj) 1,000 ml @ 3,000 mls/hr Q20M PRN IV 04/22/16 18:32 (fentaNYL INJ) 50 mcg Q1H PRN IV PUSH 04/22/16 18:45 (fentaNYL INJ) 100 mcg Q1H PRN IV PUSH 04/22/16 18:45 04/23/16 03:56 (Muri-Lube Oil) 10 ml UNSCH PRN TOPICAL 04/22/16 18:45 Lorazepam 1 mg 1 mg Q4H PRN IV PUSH 04/22/16 19:00 (Lr 1000 ml Inj) 1,000 ml @ 100 mls/hr Q10H IV 04/23/16 04:35 04/24/16 00:34 (NS Flush) 2 ml BID IV 04/23/16 09:00 (NS Flush) 2 ml UNSCH PRN IV 04/22/16 23:45 (Mylicon Chew) 80 mg QID PRN PO 04/22/16 23:45 (Tylenol) 650 mg Q6H PRN PO 04/22/16 23:45 (Percocet 5-325 Mg) 1 tab Q4H PRN PO 04/22/16 23:45 (Percocet 5-325 Mg) 2 tab Q4H PRN PO 04/22/16 23:45 04/23/16 05:09 (Kayla-Colace) 2 tab Q12H PRN PO 04/22/16 23:45 (M-M-R Ii Inj) 0.5 ml ONCE ONCE SQ 04/23/16 16:00 04/23/16 16:01 (Boostrix Inj) 0.5 ml ONCE ONCE IM 04/23/16 16:00 04/23/16 16:01 (Zofran Inj) 4 mg Q6H PRN IV PUSH 04/22/16 23:45 04/23/16 03:51 (fentaNYL INJ) 50 mcg Q1H PRN IV PUSH 04/22/16 23:45 Miscellaneous Information NO SYSTEMIC NARCOTICS TO BE GIVEN FO... UNSCH PRN XX 04/23/16 23:00 04/24/16 22:59 (Narcan Inj) 0.4 mg UNSCH PRN IV 04/23/16 23:00 04/24/16 22:59 (Benadryl Inj) 25 mg Q6H PRN IV PUSH 04/23/16 23:00 04/24/16 22:59 (Benadryl) 50 mg Q6H PRN PO 04/23/16 23:00 04/24/16 22:59 Miscellaneous Information ALL NURSING DEPARTMENTS UNSCH PRN XX 04/23/16 23:00 04/24/16 22:59 Miscellaneous Information ALL NURSING DEPARTME... UNSCH PRN XX 04/23/16 00:15 04/24/16 00:14 Miscellaneous Information No systemic narcotics to be given except... UNSCH PRN XX 04/23/16 00:30 04/24/16 00:29 Miscellaneous Information DO NOT ADMINISTER ANY ANTICOAGUL... UNSCH PRN XX 04/23/16 00:30 04/24/16 00:29 (fentaNYL 2MCG-BUPIV 0.125% INJ) 100 ml @ 0 mls/hr TITRATE EPIDURAL 04/23/16 00:30 Ephedrine Sulfate 10 mg 10 mg UNSCH PRN IV 04/23/16 00:30 04/24/16 00:29 Sodium Chloride 1,000 ml @ 125 mls/hr Q8H IV 04/23/16 00:45 04/23/16 00:55 Sodium Chloride 250 ml @ 15 mls/hr ONCE ONCE IV 04/23/16 01:30 04/23/16 18:09 (NS 250 ml Inj) 250 ml @ 15 mls/hr ONCE ONCE IV 04/23/16 01:30 04/23/16 18:09 Assessment/Plan Assessment and Plan This patient is a 30-year-old black female to 32 weeks 5 days presents complaining of severe abdominal pain. On ultrasound on OB ED is noted to have no cardiac motion large placental abruption seen OB diagnostics who came in and scanned the patient. She is in severe pain from continual contractions one after another every minute. She had no vaginal bleeding whatsoever, she denies any Trauma/ car wreck anything that caused this, denies drug use. Plan to admit the patient check abruption labs place a Chand to document urine output and at this point consider vaginal delivery for this patient would not want to do a for an nonviable baby. Would administer an epidural give some IV sedation rupture her membranes and anticipate vaginal delivery as long as her lab and her condition will let us do that, this is all discussed with the patient and her mother/ family Mehdi Mixon II, MD Apr 23, 2016 08:44
[2016-04-23] MEDS ORDERED: OXYTOCIN 30 UNITS-500ML PREMIX 500 ML IV PRN (09:45)
--- NOTE | 2016-04-23 09:59 | MP ---
cc: GARRETT MIXON MD DATE OF SURGERY: 04/22/2016 PREOPERATIVE DIAGNOSIS: 32 week intrauterine with placental abruption, demise, DIC. POSTOPERATIVE DIAGNOSIS: 32 week intrauterine with placental abruption, demise, DIC. OPERATION: Primary uterine hysterotomy for uterine evacuation. SURGEON: Garrett Mixon MD. ANESTHESIA: Epidural. PREOP NOTE: The patient is a 30 year-old black female, A2 at 32 weeks and five days, presents with severe abdominal pain and noted to have demise and a large placental abruption concealed with no vaginal bleeding. Labor was ensuing spontaneously due to the abruption, contractions every minute. We ruptured her membranes and tried to get her to deliver vaginally but the baby was breech and would not put enough pressure on the cervix for it to dilate more than 5 cm which she stayed at 5 cm for greater than two hours. It was felt that a hysterotomy via exploratory laparotomy was going to be needed to evacuate the uterus, since because we did not have time to wait, she was bleeding more than we could tolerate to proceed vaginally. PROCEDURE: The patient was taken to the operating room, placed in supine position on the operating room table. Adequate epidural anesthesia was administered. She was prepped and draped for abdominal surgery. Pfannenstiel incision was made in the lower abdomen, carried to the fascia sharply. The fascia was dissected off the rectus muscle and the rectus split in the midline. Peritoneum was reflected sharply. The bladder blade placed in the lower uterine incision. The bladder reflected off the lower uterine segment and placed on the bladder blade. A transverse hysterotomy was made in the lower uterine segment and at that time copious amount of bloody fluid was noted. The was delivered from a footling breach presentation, male , weight 4 pounds 0 ounces, 1815 grams, Apgars of 0 and 0. Cord blood was obtained. The placenta basically delivered itself. It had detached prior to delivery. The placenta was removed, and behind the placenta was a very large section of formed clot, two handfuls together was the size of this clot formation. This was all evacuated out. The hysterotomy was closed in a running layer with 0 chromic followed by imbricating suture of same. Hemostasis was achieved. The uterus was elevated and known to be a [place] uterus with blood that had seeped through the myometrium and out to the serosal surface. The tubes and ovaries were within normal limits. The uterus was replaced in the peritoneal cavity after suctioning a moderate amount of blood from the cul-de-sac and the gutters. The visceral peritoneum were reapproximated with a running layer of 2-0 Vicryl with the bladder to the lower uterine segment and the parietal peritoneum closed with a running layer of 2-0 Vicryl. The muscle reapproximated with stick ties and then the fascia closed in running layer of 0 Vicryl. The skin closed with dusty. Pressure dressing applied. Estimated blood loss was 2000 cc, when you count the amount of blood in the uterus and the large blood clot. There were no complications. Sponge and needle counts were correct x 2 and the patient taken to the upstairs PACU and [place] [facility] [place]. She has developed DIC prior to delivery and she has been receiving blood products in the form of packed red cells, two units of fresh frozen and a unit of cryoprecipitate so far, but will continue to receive blood products through the evening to reverse the DIC coagulopathy. MD ZANE East/BRIAN /11:52 PM /9:39 AM
[2016-04-23 12:02] LABS: AUTOMATED NEUTROPHIL # 15.8 TH/MM3 (1.8-7.7); BASOPHIL % 0.1 % (0.0-2.0); HEMATOCRIT 25.2 % (35.0-46.0); HEMO FLAGS DIFF FINAL; LYMPH % 3.6 % (9.0-44.0); LYMPHOCYTE # 0.6 TH/MM3 (1.0-4.8); MEAN CELL VOLUME 85.8 FL (80.0-100.0); MONO % 3.4 % (0.0-8.0); NEUT % 92.9 % (16.0-70.0); PLATELET COUNT 105 TH/MM3 (150-450); RED BLOOD COUNT 2.93 MIL/MM3 (4.00-5.30)
[2016-04-23 12:58] LABS: INTERNATIONAL NORMALIZED RATIO 0.9 RATIO
[2016-04-23] MEDS ORDERED: MEASLES, MUMPS, RUBELLA VACCINE 0.5 ML VIAL SQ ONE (16:00)
[2016-04-23] MEDS ORDERED: DIPHTH/TETANUS/ACEL PERTUSSIS (BOOSTER) 0.5 ML VIAL/PFS IM ONE (16:00)
[2016-04-23] MEDS: diphenhydrAMINE HCL 50 MG CAP PO PRN ×2 (18:49→23:46)
[2016-04-23] MEDS ORDERED: EPIDURAL-NALOXONE HCL 0.4 MG/ML AMP IV PRN (23:00)
[2016-04-23] MEDS ORDERED: EPIDURAL-DO NOT ADMINISTER ANTICOAGULANTS XX PRN (23:00)
[2016-04-23] MEDS ORDERED: EPIDURAL-NO SYSTEMIC NARCOTICS XX PRN (23:00)
[2016-04-23] MEDS ORDERED: EPIDURAL-DIPHENHYDRAMINE HCL 50 MG/ML VIAL IV PUSH PRN (23:00)
[2016-04-23] MEDS ORDERED: EPIDURAL-DIPHENHYDRAMINE HCL 50 MG CAP PO PRN (23:00)
[2016-04-24] VITALS (9 sets, daily range): BP systolic 92–112; BP diastolic 55–77; PULSE 75–107; RESP 16–18; TEMP 98.2–99.7; O2SAT 96–99
[2016-04-24] MEDS: oxyCODONE/ACETAMINOPHEN 5 MG/325 MG TAB PO PRN ×3 (01:49→11:47)
[2016-04-24 05:51] LABS: AUTOMATED NEUTROPHIL # 11.4 TH/MM3 (1.8-7.7); BASOPHIL % 0.1 % (0.0-2.0); EOSINOPHIL % 0.2 % (0.0-4.0); HEMATOCRIT 21.5 % (35.0-46.0); LYMPH % 12.8 % (9.0-44.0); LYMPHOCYTE # 1.9 TH/MM3 (1.0-4.8); MEAN CELL VOLUME 85.4 FL (80.0-100.0); MEAN CORPUSCULAR HEMOGLOBIN 29.8 PG (27.0-34.0); MEAN CORPUSCULAR HGB CONC 34.9 % (32.0-36.0); MONO % 7.9 % (0.0-8.0); PLATELET COUNT 96 TH/MM3 (150-450); RED BLOOD COUNT 2.51 MIL/MM3 (4.00-5.30); RED CELL DISTRIBUTION WIDTH 15.1 % (11.6-17.2); WHITE BLOOD COUNT 14.5 TH/MM3 (4.0-11.0)
[2016-04-24 06:08] LABS: HEMO FLAGS AUTO DIFF
[2016-04-24 08:37] LABS: PLATELET ESTIMATE SMEAR LOW (NORMAL); PLATELET MORPHOLOGY NORMAL (NORMAL); SCAN/DIFF AUTO DIFF CONFIRMED
--- NOTE | 2016-04-24 08:57 | HHI.CCPN ---
Subjective Remarks/Hospital Course This patient is 30-year-old black female A2 at 32-33 weeks WHO PRESENTED with severe abdominal pain for several hours, no bleeding or leakage of fluid. Patient was confirmed with diagnosis of demise secondary to abruption. She had significant bleeding and underwent hysterotomy for removal of fetus and placenta. She was ordered 2 units PRBCs, 2 units FFP and 1 unit cryoprecipitate for coagulopathy/DIC. Patient had an epidural placed to the procedure and tolerated procedure well following which she was transferred to PACU. She was hypotensive intraoperatively received fluid boluses as well as blood products. I was contacted by Dr. Mixon following patient's arrival in PACU for critical care consult. When I evaluated the patient in PACU she was laying comfortably not in any acute distress. She had just finished her second unit of PRBCs and was completing a fluid bolus with normal salt and was maintaining her blood pressure. History was obtained by reviewing records and discussion with Dr. Mixon and PACU nursing staff. 04/24 Patient is lying in bed in NAD. Afebrile. Objective Vital Signs Date Time Temp Pulse Resp B/P Pulse Ox O2 Delivery O2 Flow Rate FiO2 04/24/16 06:00 88 04/24/16 04:00 98.2 16 92/55 97 109/65 04/23/16 02:00 Room Air Intake and Output 04/23/16 04/23/16 04/24/16 08:00 16:00 00:00 Intake Total 3493 ml 2314 ml 1737 ml Output Total 1150 ml 2000 ml 4150 ml Balance 2343 ml 314 ml -2413 ml Result Diagram: 04/24/16 0521 04/23/16 0510 Other Results Laboratory Tests Test 04/23/16 04/23/16 04/23/16 04/24/16 11:05 12:15 16:34 05:21 White Blood Count 17.0 TH/MM3 14.5 TH/MM3 Red Blood Count 2.93 MIL/MM3 2.51 MIL/MM3 Hemoglobin 8.8 GM/DL 7.5 GM/DL Hematocrit 25.2 % 21.5 % Mean Corpuscular Volume 85.8 FL 85.4 FL Mean Corpuscular Hemoglobin 30.0 PG 29.8 PG Mean Corpuscular Hemoglobin 35.0 % 34.9 % Concent Red Cell Distribution Width 15.0 % 15.1 % Platelet Count 105 TH/MM3 96 TH/MM3 Mean Platelet Volume 8.2 FL 9.0 FL Neutrophils (%) (Auto) 92.9 % 79.0 % Lymphocytes (%) (Auto) 3.6 % 12.8 % Monocytes (%) (Auto) 3.4 % 7.9 % Eosinophils (%) (Auto) 0.0 % 0.2 % Basophils (%) (Auto) 0.1 % 0.1 % Neutrophils # (Auto) 15.8 TH/MM3 11.4 TH/MM3 Lymphocytes # (Auto) 0.6 TH/MM3 1.9 TH/MM3 Monocytes # (Auto) 0.6 TH/MM3 1.1 TH/MM3 Eosinophils # (Auto) 0.0 TH/MM3 0.0 TH/MM3 Basophils # (Auto) 0.0 TH/MM3 0.0 TH/MM3 CBC Comment DIFF FINAL AUTO DIFF Differential Comment Prothrombin Time 10.0 SEC 9.9 SEC Prothromb Time International 0.9 RATIO 0.9 RATIO Ratio Fibrinogen 285 mg/dL Activated Partial 28.5 SEC Thromboplast Time Objective Remarks GENERAL: Patient is lying in bed in NAD. SKIN: Warm and dry. HEAD: Normocephalic. EYES: No scleral icterus. No injection or drainage. NECK: Supple, trachea midline. No JVD or lymphadenopathy. CARDIOVASCULAR: Regular rate and rhythm without murmurs, gallops, or rubs. RESPIRATORY: Breath sounds equal bilaterally. No accessory muscle use. GASTROINTESTINAL: Abdomen soft, non-tender, nondistended. MUSCULOSKELETAL: No cyanosis, or edema. 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 CV: Monitor HR and BP keep MAP>65mmHg Pulm: Oxygen PRN keep sat >92% GI/liver: Advance diet as bernadette if ok with OB : Monitor renal function, electrolytes replacement as needed ID: Perioperative antibiotic prophylaxis per Dr. Mixon. Monitor for signs of infections ( Fever, WBC) Endocrine: Watch for hyperglycemia Ob: s/p hysterotomy for demise with abruptio placentae with DIC Heme: Monitor CBC, coags, s/p multiple bood products for coagulopathy. INR: 0.9 today, Fibrinogen 285 04/23 Will transfuse 1u PRBC tofay for Hgb 7.5 Prophylaxis: SCDs. No heparin in view of coagulopathy. Will sign off . Level 3 Debbie Ibarra MD Apr 24, 2016 08:57
[2016-04-24] MEDS ORDERED: POTASSIUM CHLOR 20 MEQ PREMIX 100 ML IV PRN ×2 (09:00)
[2016-04-24] MEDS ORDERED: MAGNESIUM OXIDE 400 MG TAB PO PRN (09:00)
[2016-04-24] MEDS ORDERED: POTASSIUM PHOSPHATE INJ 30 MMOL in SODIUM CHLOR 0.9% 250 ML INJ 250 ML IV PRN (09:00)
[2016-04-24] MEDS ORDERED: POTASSIUM CL 40 MEQ/30 ML LIQ UDC PO/TUBE PRN (09:00)
[2016-04-24] MEDS ORDERED: POTASSIUM PHOSPHATE MONOBASIC 500 MG TAB PO/TUBE PRN (09:00)
[2016-04-24] MEDS ORDERED: SODIUM PHOSPHATE INJ 30 MMOL in SODIUM CHLOR 0.9% 250 ML INJ 240 ML IV PRN (09:00)
[2016-04-24] MEDS ORDERED: MAGNESIUM SULFATE INJ 2 GM in SODIUM CHLORIDE 0.9% INJ 96 ML IV PRN (09:00)
[2016-04-24] MEDS ORDERED: POTASSIUM PHOSPHATE MONOBASIC 500 MG TAB PO PRN (09:00)
[2016-04-24] MEDS ORDERED: POTASSIUM CHLOR 40 MEQ PREMIX 100 ML IV PRN ×2 (09:00)
[2016-04-24] MEDS: SODIUM CHLORIDE 0.9% FLUSH 5 ML FLUSH IV SCH ×2 (09:00→20:52)
[2016-04-24] MEDS ORDERED: MAGNESIUM SULFATE INJ 4 GM in SODIUM CHLORIDE 0.9% INJ 92 ML IV PRN (09:00)
[2016-04-24 10:45] LABS: APTT (PATIENT) 33.4 SEC (24.3-30.1)
[2016-04-24 10:46] LABS: PROTHROMBIN TIME - PATIENT 9.7 SEC (9.8-11.6)
[2016-04-24 10:47] LABS: INTERNATIONAL NORMALIZED RATIO 0.9 RATIO
[2016-04-24] MEDS ORDERED: diphenhydrAMINE HCL 50 MG/ML VIAL IV PUSH ONE (14:30)
--- NOTE | 2016-04-24 14:44 | HHI.OB ---
Subjective Post Operative Day: 3 Remarks Patient is POD #3 status-post for placental abruption and demise with resulting DIC after hemorrhage AFVSS, Tmax 98.7 Patient states she has some itching associated with the Percocet and requests a different medication today. She currently receives Percocet and fentanyl IV for severe pain. Her pain is in the abdomen, stable. Vaginal bleeding is reportedly like a period, stable. She received 1 unit PRBCs today, finishing approximately an hour ago. She denies other symptoms today besides being emotional. Objective Vitals/I&O Vital Signs Date Time Temp Pulse Resp B/P Pulse Ox O2 Delivery O2 Flow Rate FiO2 04/24/16 06:00 88 04/24/16 04:00 98.2 107 16 92/55 97 109/65 04/24/16 04:00 107 04/24/16 02:49 16 04/24/16 02:00 75 04/24/16 00:47 16 04/24/16 00:00 98.2 98 18 110/59 97 04/24/16 00:00 98 04/23/16 22:00 102 04/23/16 20:00 74 04/23/16 20:00 98.4 74 18 108/59 97 04/23/16 18:00 86 04/23/16 16:00 97.7 87 16 109/57 95 04/23/16 16:00 86 Intake & Output 04/24/16 04/24/16 07:00 19:00 Intake Total 3082 ml Output Total 2700 ml Balance 382 ml Intake Oral 1200 ml IV Total 1882 ml Output Urine Total 2700 ml # Bowel Movements 0 # Sanitary Pads 1 Pads 1 Pads Result Diagram: 04/24/16 0521 04/23/16 0510 Objective Remarks GENERAL: Well-nourished, well-developed female. CARDIOVASCULAR: Regular rate and rhythm without murmurs, gallops, or rubs. RESPIRATORY: Breath sounds equal bilaterally. No accessory muscle use. ABDOMEN/GI: Abdomen soft, non-tender, bowel sounds present. Incision: Clean, dry and intact. Fundus: Firm, non-tender at umbilicus. GENITOURINARY: Light to moderate bleeding. EXTREMITIES: No cyanosis or edema, non-tender, without signs of DVT. Medications and IVs Current Medications Medications (Trade) Dose Ordered Sig/Sorin Route Start Time Stop Time Status Last Admin (Muri-Lube Oil) 10 ml UNSCH PRN TOPICAL 04/22/16 18:45 (Ativan Inj) 1 mg Q4H PRN IV PUSH 04/22/16 19:00 (NS Flush) 2 ml BID IV 04/23/16 09:00 04/24/16 09:00 (NS Flush) 2 ml UNSCH PRN IV 04/22/16 23:45 (Mylicon Chew) 80 mg QID PRN PO 04/22/16 23:45 (Tylenol) 650 mg Q6H PRN PO 04/22/16 23:45 (Zofran Inj) 4 mg Q6H PRN IV PUSH 04/22/16 23:45 04/23/16 03:51 Miscellaneous Information NO SYSTEMIC NARCOTICS TO BE GIVEN FO... UNSCH PRN XX 04/23/16 23:00 04/24/16 22:59 (Narcan Inj) 0.4 mg UNSCH PRN IV 04/23/16 23:00 04/24/16 22:59 (Benadryl Inj) 25 mg Q6H PRN IV PUSH 04/23/16 23:00 04/24/16 22:59 (Benadryl) 50 mg Q6H PRN PO 04/23/16 23:00 04/24/16 22:59 Miscellaneous Information ALL NURSING DEPARTMENTS UNSCH PRN XX 04/23/16 23:00 04/24/16 22:59 (fentaNYL 2MCG-BUPIV 0.125% INJ) 100 ml @ 0 mls/hr TITRATE EPIDURAL 04/23/16 00:30 Diphenhydramine HCl 50 mg 50 mg Q6H PRN PO 04/23/16 18:15 04/23/16 23:46 Potassium Chloride 100 ml @ 50 mls/hr Q2H PRN IV 04/24/16 09:00 (KCl 20 Meq Premix Inj) 100 ml @ 50 mls/hr Q2H PRN IV 04/24/16 09:00 04/24/16 13:28 Potassium Chloride 40 meq 40 meq UNSCH PRN PO/TUBE 04/24/16 09:00 Potassium Chloride 100 ml @ 25 mls/hr UNSCH PRN IV 04/24/16 09:00 Potassium Chloride 100 ml @ 50 mls/hr Q2H PRN IV 04/24/16 09:00 (Magnesium Sulfate Inj/NS Inj) 100 ml @ 50 mls/hr UNSCH PRN IV 04/24/16 09:00 Magnesium Oxide 800 mg 800 mg UNSCH PRN PO 04/24/16 09:00 (Magnesium Sulfate Inj/NS Inj) 100 ml @ 50 mls/hr UNSCH PRN IV 04/24/16 09:00 Potassium Phosphate 2000 mg 2,000 mg Q4H PRN PO 04/24/16 09:00 (Sodium Phosphate Inj/NS 250 ml Inj) 250 ml @ 42 mls/hr UNSCH PRN IV 04/24/16 09:00 (KCl 40 Meq/30 ml Liq) 40 meq UNSCH PRN PO/TUBE 04/24/16 09:00 Potassium Phosphate 2000 mg 2,000 mg UNSCH PRN PO/TUBE 04/24/16 09:00 (Potassium Phosphate Inj/NS 250 ml Inj) 260 ml @ 42 mls/hr UNSCH PRN IV 04/24/16 09:00 (Benadryl Inj) 50 mg ONCE ONCE IV PUSH 04/24/16 14:30 04/24/16 14:31 UNV (Dilaudid) 1 mg Q6H PRN PO 04/24/16 14:30 UNV (Kayla-Colace) 1 tab Q12H PO 04/24/16 18:00 UNV Assessment/Plan Problem List: (1) DIC (disseminated intravascular coagulation) (2) Placental abruption with coagulation defect Assessment and Plan 30-year-old female at 32 and 5/7 weeks at admission, currently in IMC status post with nonviable fetus after placental abruption, with consequential DIC. Currently in IMC, status post management with 8 units of leuko-reduced RBCs, 2 units FFP, 1 unit of platelets, 1 unit of cryoprecipitate. Currently being monitored with serial H&H's and close monitoring of volume status. Most recent lab was this morning, showing H&H of 7.5/21.5. PT/PTT decreasing probably, fibrinogen within normal limits. Plan today is to rule out H&H this afternoon, will likely transfer to the OB floor today. Pain management altered today: Discontinue fentanyl and Percocet. Continue Tylenol when necessary pain 105, ordered low-dose Dilaudid at 1 mg PO every 6 hours when necessary pain 6-10. Scheduled Kayla-Colace 1 tab every 12 hours. Appreciate [facility] staff and patient service technician pst support and management of this patient Discharge Planning Unknown at this time Marianna Linn MD R1 Apr 24, 2016 14:44
[2016-04-24] MEDS: POTASSIUM CL 40 MEQ/30 ML LIQ UDC PO/TUBE PRN (15:07)
[2016-04-24] MEDS: HYDROmorphone HCL 2 MG TAB PO PRN ×2 (15:07→21:54)
[2016-04-24] MEDS: LORazepam 2 MG/ML VIAL IV PUSH PRN ×2 (16:16→20:52)
[2016-04-24] MEDS: DOCUSATE SODIUM 50 MG/SENNA 8.6 MG TAB PO SCH (16:17)
[2016-04-24 17:23] LABS: BASOPHIL % 0.1 % (0.0-2.0); EOSINOPHIL # 0.1 TH/MM3 (0-0.4); EOSINOPHIL % 0.4 % (0.0-4.0); HEMATOCRIT 26.8 % (35.0-46.0); HEMO FLAGS DIFF FINAL; LYMPH % 13.6 % (9.0-44.0); LYMPHOCYTE # 2.3 TH/MM3 (1.0-4.8); MEAN CELL VOLUME 85.3 FL (80.0-100.0); MEAN CORPUSCULAR HEMOGLOBIN 29.9 PG (27.0-34.0); MEAN CORPUSCULAR HGB CONC 35.1 % (32.0-36.0); MONO % 7.6 % (0.0-8.0); NEUT % 78.3 % (16.0-70.0); PLATELET COUNT 128 TH/MM3 (150-450); RED BLOOD COUNT 3.14 MIL/MM3 (4.00-5.30); RED CELL DISTRIBUTION WIDTH 14.7 % (11.6-17.2); WHITE BLOOD COUNT 16.6 TH/MM3 (4.0-11.0)
[2016-04-24 19:31] LABS: BICARBONATE 27.2 MEQ/L (21.0-32.0); MAGNESIUM 1.4 MG/DL (1.5-2.5); POTASSIUM 3.3 MEQ/L (3.5-5.1)
[2016-04-25] VITALS (12 sets, daily range): BP systolic 104–156; BP diastolic 59–73; PULSE 77–93; RESP 16–20; TEMP 98.5–99.6; O2SAT 94–96
[2016-04-25] MEDS: POTASSIUM CL 40 MEQ/30 ML LIQ UDC PO/TUBE PRN (01:53)
[2016-04-25] MEDS: LORazepam 2 MG/ML VIAL IV PUSH PRN (01:54)
[2016-04-25] MEDS: DOCUSATE SODIUM 50 MG/SENNA 8.6 MG TAB PO SCH ×2 (07:13→18:08)
--- NOTE | 2016-04-25 07:59 | HHI.OB ---
Subjective Post Operative Day: 2 Remarks Postoperative day 2-1/2 afebrile vital signs stable status post hysterotomy for demise after abruption with DIC Patient is up and around tolerating solid food awake and alert. She denies passage of gas or bout bowel movement yet no nausea vomiting Exam she is 3+ distention with decreased bowel sounds, bandage removed incision is clean and dry dusty intact, CV regular rate and rhythm her lungs are clear Impression-- is stable status post laparotomy hysterotomy , laboratory is looking good she had a unit of blood yesterday and her hematocrit 26.8 today, her potassium is 3.3 and was replaced last night with a potassium replacement protocol Plan to move the patient back to labor and delivery and resume primary care, will stimulate bowel increase her ambulation and hopefully be able to discharge home tomorrow Objective Vitals/I&O Vital Signs Date Time Temp Pulse Resp B/P Pulse Ox O2 Delivery O2 Flow Rate FiO2 04/25/16 06:00 89 04/25/16 04:00 84 04/25/16 04:00 98.9 84 104/59 96 04/25/16 02:00 87 04/25/16 00:00 92 04/25/16 00:00 99.6 92 108/61 94 04/24/16 22:00 97 04/24/16 20:00 99 04/24/16 20:00 99.7 91 108/67 99 04/24/16 16:00 99.0 91 18 112/77 97 Arterial Line 04/24/16 12:00 98.7 87 18 111/66 96 Arterial Line 04/24/16 08:00 99.1 97 18 107/57 97 Arterial Line Intake & Output 04/25/16 04/25/16 07:00 19:00 Intake Total 360 ml Output Total 1690 ml Balance -1330 ml Intake Oral 360 ml Output Urine Total 1690 ml # Voids 4 # Sanitary Pads 1 Pads 1 Pads 1 Pads Result Diagram: 04/24/16 1611 04/24/16 4669 Objective Remarks GENERAL: Well-nourished, well-developed female. CARDIOVASCULAR: Regular rate and rhythm without murmurs, gallops, or rubs. RESPIRATORY: Breath sounds equal bilaterally. No accessory muscle use. ABDOMEN/GI: Abdomen soft, non-tender, bowel sounds present. Incision: Clean, dry and intact. Fundus: Firm, non-tender at umbilicus. GENITOURINARY: Light to moderate bleeding. EXTREMITIES: No cyanosis or edema, non-tender, without signs of DVT. Medications and IVs Current Medications Medications (Trade) Dose Ordered Sig/Sorin Route Start Time Stop Time Status Last Admin (Muri-Lube Oil) 10 ml UNSCH PRN TOPICAL 04/22/16 18:45 (Ativan Inj) 1 mg Q4H PRN IV PUSH 04/22/16 19:00 04/25/16 01:54 (NS Flush) 2 ml BID IV 04/23/16 09:00 04/24/16 20:52 (NS Flush) 2 ml UNSCH PRN IV 04/22/16 23:45 (Mylicon Chew) 80 mg QID PRN PO 04/22/16 23:45 (Tylenol) 650 mg Q6H PRN PO 04/22/16 23:45 Ondansetron HCl 4 mg 4 mg Q6H PRN IV PUSH 04/22/16 23:45 04/23/16 03:51 (fentaNYL 2MCG-BUPIV 0.125% INJ) 100 ml @ 0 mls/hr TITRATE EPIDURAL 04/23/16 00:30 Diphenhydramine HCl 50 mg 50 mg Q6H PRN PO 04/23/16 18:15 04/23/16 23:46 Potassium Chloride 100 ml @ 50 mls/hr Q2H PRN IV 04/24/16 09:00 (KCl 20 Meq Premix Inj) 100 ml @ 50 mls/hr Q2H PRN IV 04/24/16 09:00 Potassium Chloride 40 meq 40 meq UNSCH PRN PO/TUBE 04/24/16 09:00 04/25/16 01:53 Potassium Chloride 100 ml @ 25 mls/hr UNSCH PRN IV 04/24/16 09:00 Potassium Chloride 100 ml @ 50 mls/hr Q2H PRN IV 04/24/16 09:00 (Magnesium Sulfate Inj/NS Inj) 100 ml @ 50 mls/hr UNSCH PRN IV 04/24/16 09:00 Magnesium Oxide 800 mg 800 mg UNSCH PRN PO 04/24/16 09:00 (Magnesium Sulfate Inj/NS Inj) 100 ml @ 50 mls/hr UNSCH PRN IV 04/24/16 09:00 Potassium Phosphate 2000 mg 2,000 mg Q4H PRN PO 04/24/16 09:00 (Sodium Phosphate Inj/NS 250 ml Inj) 250 ml @ 42 mls/hr UNSCH PRN IV 04/24/16 09:00 (KCl 40 Meq/30 ml Liq) 40 meq UNSCH PRN PO/TUBE 04/24/16 09:00 Potassium Phosphate 2000 mg 2,000 mg UNSCH PRN PO/TUBE 04/24/16 09:00 (Potassium Phosphate Inj/NS 250 ml Inj) 260 ml @ 42 mls/hr UNSCH PRN IV 04/24/16 09:00 (Dilaudid) 1 mg Q6H PRN PO 04/24/16 14:30 04/24/16 21:54 (Kayla-Colace) 1 tab Q12H PO 04/24/16 18:00 04/25/16 07:13 Assessment/Plan Problem List: (1) DIC (disseminated intravascular coagulation) (2) Placental abruption with coagulation defect Assessment and Plan 30-year-old female at 32 and 5/7 weeks at admission, currently in IMC status post with nonviable fetus after placental abruption, with consequential DIC. Currently in IMC, status post management with 8 units of leuko-reduced RBCs, 2 units FFP, 1 unit of platelets, 1 unit of cryoprecipitate. Currently being monitored with serial H&H's and close monitoring of volume status. Most recent lab was this morning, showing H&H of 7.5/21.5. PT/PTT decreasing probably, fibrinogen within normal limits. Plan today is to rule out H&H this afternoon, will likely transfer to the OB floor today. Pain management altered today: Discontinue fentanyl and Percocet. Continue Tylenol when necessary pain 105, ordered low-dose Dilaudid at 1 mg PO every 6 hours when necessary pain 6-10. Scheduled Kayla-Colace 1 tab every 12 hours. Appreciate [facility] [place] and heating and blending supervisor support and management of this patient Discharge Planning Unknown at this time Mehdi Mixon II, MD Apr 25, 2016 07:59
--- NOTE | 2016-04-25 08:22 | HHI.CCPN ---
Subjective Remarks/Hospital Course This patient is 30-year-old black female A2 at 32-33 weeks WHO PRESENTED with severe abdominal pain for several hours, no bleeding or leakage of fluid. Patient was confirmed with diagnosis of demise secondary to abruption. She had significant bleeding and underwent hysterotomy for removal of fetus and placenta. She was ordered 2 units PRBCs, 2 units FFP and 1 unit cryoprecipitate for coagulopathy/DIC. Patient had an epidural placed to the procedure and tolerated procedure well following which she was transferred to PACU. She was hypotensive intraoperatively received fluid boluses as well as blood products. I was contacted by Dr. Mixon following patient's arrival in PACU for critical care consult. When I evaluated the patient in PACU she was laying comfortably not in any acute distress. She had just finished her second unit of PRBCs and was completing a fluid bolus with normal salt and was maintaining her blood pressure. History was obtained by reviewing records and discussion with Dr. Mixon and PACU nursing staff. 04/24 Patient is lying in bed in NAD. Afebrile. 04/25 No events overnight. Patient is lying in bed in NAD. Afebrile. s/p transfusion 1u PRBC Hgb 9.4 post transfusion from 7.5. Objective Vital Signs Date Time Temp Pulse Resp B/P Pulse Ox O2 Delivery O2 Flow Rate FiO2 04/25/16 06:00 89 04/25/16 04:00 98.9 104/59 96 04/24/16 16:00 18 04/23/16 02:00 Room Air Intake and Output 04/24/16 04/24/16 04/25/16 08:00 16:00 00:00 Intake Total 1345 ml 1970 ml 240 ml Output Total 1350 ml 1100 ml 1025 ml Balance -5 ml 870 ml -785 ml Result Diagram: 04/24/16 1611 04/24/16 1849 Other Results Laboratory Tests Test 04/24/16 04/24/16 04/24/16 09:20 16:11 18:49 Prothrombin Time 9.7 SEC Prothromb Time International 0.9 RATIO Ratio Activated Partial 33.4 SEC Thromboplast Time Fibrinogen 377 mg/dL White Blood Count 16.6 TH/MM3 Red Blood Count 3.14 MIL/MM3 Hemoglobin 9.4 GM/DL Hematocrit 26.8 % Mean Corpuscular Volume 85.3 FL Mean Corpuscular Hemoglobin 29.9 PG Mean Corpuscular Hemoglobin 35.1 % Concent Red Cell Distribution Width 14.7 % Platelet Count 128 TH/MM3 Mean Platelet Volume 9.3 FL Neutrophils (%) (Auto) 78.3 % Lymphocytes (%) (Auto) 13.6 % Monocytes (%) (Auto) 7.6 % Eosinophils (%) (Auto) 0.4 % Basophils (%) (Auto) 0.1 % Neutrophils # (Auto) 13.0 TH/MM3 Lymphocytes # (Auto) 2.3 TH/MM3 Monocytes # (Auto) 1.3 TH/MM3 Eosinophils # (Auto) 0.1 TH/MM3 Basophils # (Auto) 0.0 TH/MM3 CBC Comment DIFF FINAL Differential Comment Phosphorus Level 3.5 MG/DL 3.3 MG/DL Sodium Level 141 MEQ/L Potassium Level 3.3 MEQ/L Chloride Level 108 MEQ/L Carbon Dioxide Level 27.2 MEQ/L Anion Gap 6 MEQ/L Blood Urea Nitrogen 5 MG/DL Creatinine 0.48 MG/DL Estimat Glomerular Filtration 184 ML/MIN Rate Random Glucose 88 MG/DL Calcium Level 8.2 MG/DL Magnesium Level 1.4 MG/DL Objective Remarks GENERAL: Patient is lying in bed in NAD. SKIN: Warm and dry. HEAD: Normocephalic. EYES: No scleral icterus. No injection or drainage. NECK: Supple, trachea midline. No JVD or lymphadenopathy. CARDIOVASCULAR: Regular rate and rhythm without murmurs, gallops, or rubs. RESPIRATORY: Breath sounds equal bilaterally. No accessory muscle use. GASTROINTESTINAL: Abdomen soft, non-tender, nondistended. MUSCULOSKELETAL: No cyanosis, or edema. 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 CV: Monitor HR and BP keep MAP>65mmHg Pulm: Oxygen PRN keep sat >92% GI/liver: Advance diet as bernadette if ok with OB : Monitor renal function, electrolytes replacement as needed ID: Perioperative antibiotic prophylaxis per Dr. Mixon. Monitor for signs of infections ( Fever, WBC) Endocrine: Watch for hyperglycemia Ob: s/p hysterotomy for demise with abruptio placentae with DIC Heme: Monitor CBC, coags, s/p multiple bood products for coagulopathy. INR: 0.9 today, Fibrinogen 285 04/23 s/p 1u PRBC 04/24 Prophylaxis: SCDs. No heparin in view of coagulopathy. Will sign off ok to transfer to L& D. Discussed with Dr. Mixon. Level 3 Debbie Ibarra MD Apr 25, 2016 08:22
[2016-04-25] MEDS: ACETAMINOPHEN 325 MG TAB PO PRN ×2 (08:29→13:27)
[2016-04-25 08:44] LABS: AUTOMATED NEUTROPHIL # 16.4 TH/MM3 (1.8-7.7); BASOPHIL % 0.1 % (0.0-2.0); EOSINOPHIL # 0.1 TH/MM3 (0-0.4); EOSINOPHIL % 0.5 % (0.0-4.0); HEMO FLAGS DIFF FINAL; LYMPH % 9.6 % (9.0-44.0); LYMPHOCYTE # 1.9 TH/MM3 (1.0-4.8); MEAN CELL VOLUME 86.1 FL (80.0-100.0); MEAN CORPUSCULAR HEMOGLOBIN 29.3 PG (27.0-34.0); MONO % 6.6 % (0.0-8.0); NEUT % 83.2 % (16.0-70.0); PLATELET COUNT 171 TH/MM3 (150-450); RED BLOOD COUNT 3.61 MIL/MM3 (4.00-5.30); RED CELL DISTRIBUTION WIDTH 14.6 % (11.6-17.2); WHITE BLOOD COUNT 19.7 TH/MM3 (4.0-11.0)
[2016-04-25] MEDS: SODIUM CHLORIDE 0.9% FLUSH 5 ML FLUSH IV SCH (09:00)
[2016-04-25 09:01] LABS: BICARBONATE 25.1 MEQ/L (21.0-32.0); MAGNESIUM 1.6 MG/DL (1.5-2.5); POTASSIUM 3.7 MEQ/L (3.5-5.1)
[2016-04-25] MEDS: HYDROmorphone HCL 2 MG TAB PO PRN ×3 (10:54→23:57)
[2016-04-25] MEDS ORDERED: ZOLPIDEM TARTRATE 5 MG TAB PO PRN (20:15)
[2016-04-25] MEDS ORDERED: SIMETHICONE 80 MG CHEWABLE TAB PO PRN (20:30)
[2016-04-25] MEDS: diphenhydrAMINE HCL 50 MG CAP PO PRN (23:20)
[2016-04-26] VITALS (8 sets, daily range): BP systolic 94–103; BP diastolic 50–60; PULSE 67–74; RESP 16–18; TEMP 98.7–98.8
[2016-04-26] MEDS: DOCUSATE SODIUM 50 MG/SENNA 8.6 MG TAB PO SCH (06:00)
[2016-04-26] MEDS ORDERED: POLYETHYLENE GLYCOL 17 GM PKG PO ONE (07:15)
--- NOTE | 2016-04-26 07:23 | HHI.OB ---
Subjective Remarks 30 year old female POD 4 status post hysterotomy for demise after placental abruption, complicated by DIC. Patient is now on the OB floor. Main complaint this morning is lack of bowel movement and flatus, abdominal distension and discomfort. She is getting pericolace 2 pills twice a day and Miralax is being added this morning. She has simethicone for gas. She is encouraged to get up and move around and drink more water. She is also not eating much. She reports sadness regarding the demise. DIC resolving. She reports no issues with the incision site. (Juan Luis Harry MD R2) Objective Vitals/I&O Vital Signs Date Time Temp Pulse Resp B/P Pulse Ox O2 Delivery O2 Flow Rate FiO2 04/26/16 06:56 16 04/26/16 05:00 16 04/26/16 03:00 16 04/26/16 01:00 98.7 18 04/26/16 00:01 74 103/54 04/25/16 21:22 16 04/25/16 20:14 18 04/25/16 20:14 18 04/25/16 19:27 98.8 04/25/16 19:25 18 04/25/16 19:23 86 106/61 04/25/16 13:43 98.6 04/25/16 13:42 77 20 112/72 04/25/16 12:00 98.5 85 20 156/70 96 04/25/16 08:00 99.1 93 113/73 96 (Juan Luis Harry MD R2) Result Diagram: 04/25/1619 04/25/16 0819 Objective Remarks GENERAL: Lying in bed, no acute distress CARDIOVASCULAR: Regular rate and rhythm without murmurs, gallops, or rubs. RESPIRATORY: Breath sounds equal bilaterally. No accessory muscle use. ABDOMEN/GI: Abdominal distension, tender to palpation, bowel sounds increased compared to yesterday. Incision: Clean, dry and intact. [place] in place. Fundus: Firm, non-tender at umbilicus. GENITOURINARY: Light to moderate bleeding. EXTREMITIES: No cyanosis or edema, non-tender, without signs of DVT. PSYCH: Sad affect Medications and IVs Current Medications Medications (Trade) Dose Ordered Sig/Sorin Route Start Time Stop Time Status Last Admin (Muri-Lube Oil) 10 ml UNSCH PRN TOPICAL 04/22/16 18:45 (Ativan Inj) 1 mg Q4H PRN IV PUSH 04/22/16 19:00 04/25/16 01:54 (NS Flush) 2 ml BID IV 04/23/16 09:00 04/25/16 09:00 (NS Flush) 2 ml UNSCH PRN IV 04/22/16 23:45 (Tylenol) 650 mg Q6H PRN PO 04/22/16 23:45 04/25/16 13:27 Ondansetron HCl 4 mg 4 mg Q6H PRN IV PUSH 04/22/16 23:45 04/23/16 03:51 (fentaNYL 2MCG-BUPIV 0.125% INJ) 100 ml @ 0 mls/hr TITRATE EPIDURAL 04/23/16 00:30 Diphenhydramine HCl 50 mg 50 mg Q6H PRN PO 04/23/16 18:15 04/25/16 23:20 Potassium Chloride 100 ml @ 50 mls/hr Q2H PRN IV 04/24/16 09:00 (KCl 20 Meq Premix Inj) 100 ml @ 50 mls/hr Q2H PRN IV 04/24/16 09:00 Potassium Chloride 40 meq 40 meq UNSCH PRN PO/TUBE 04/24/16 09:00 04/25/16 01:53 Potassium Chloride 100 ml @ 25 mls/hr UNSCH PRN IV 04/24/16 09:00 Potassium Chloride 100 ml @ 50 mls/hr Q2H PRN IV 04/24/16 09:00 (Magnesium Sulfate Inj/NS Inj) 100 ml @ 50 mls/hr UNSCH PRN IV 04/24/16 09:00 Magnesium Oxide 800 mg 800 mg UNSCH PRN PO 04/24/16 09:00 (Magnesium Sulfate Inj/NS Inj) 100 ml @ 50 mls/hr UNSCH PRN IV 04/24/16 09:00 Potassium Phosphate 2000 mg 2,000 mg Q4H PRN PO 04/24/16 09:00 (Sodium Phosphate Inj/NS 250 ml Inj) 250 ml @ 42 mls/hr UNSCH PRN IV 04/24/16 09:00 (KCl 40 Meq/30 ml Liq) 40 meq UNSCH PRN PO/TUBE 04/24/16 09:00 Potassium Phosphate 2000 mg 2,000 mg UNSCH PRN PO/TUBE 04/24/16 09:00 (Potassium Phosphate Inj/NS 250 ml Inj) 260 ml @ 42 mls/hr UNSCH PRN IV 04/24/16 09:00 (Dilaudid) 1 mg Q6H PRN PO 04/24/16 14:30 04/25/16 23:57 (Kayla-Colace) 2 tab Q12H PO 04/25/16 18:00 04/25/16 18:08 (Ambien) 5 mg HS PRN PO 04/25/16 20:15 04/25/16 20:15 (Mylicon Chew) 80 mg Q8H PRN PO 04/25/16 20:30 (Juan Luis Harry MD R2) Assessment/Plan Problem List: (1) DIC (disseminated intravascular coagulation) (2) Placental abruption with coagulation defect Assessment and Plan 30-year-old female at 32 and 5/7 weeks at admission, status post C- section with nonviable fetus after placental abruption, with subsequent DIC. Status post management with 8 units of leuko-reduced RBCs, 2 units FFP, 1 unit of platelets, 1 unit of cryoprecipitate. Most recent labs showing improving H&H , PT/PTT improved, fibrinogen normal. Now with ileus, encouraging up to chair, ambulation, increased water intake, increased food/fiber intake. No nausea or vomiting currently, but she does have abdominal distension. Bowel sounds yesterday were minimal, but today are increased. Discharge Planning Unknown at this time (Juan Luis Harry MD R2) Attending Attestation The exam, history, and the medical decision-making described in the above note were completed with the assistance of the resident provider. I reviewed and agree with the findings presented. I attest that I had a [id number] encounter with the patient on the same day, and personally performed and documented my assessment and findings in the medical record. (Adelfo Holden MD) Juan Luis Harry MD R2 Apr 26, 2016 07:23 Adelfo Holden MD Apr 26, 2016 07:29
[2016-04-26] MEDS ORDERED: oxyCODONE/ACETAMINOPHEN 5 MG/325 MG TAB PO PRN (07:30)
[2016-04-26] MEDS: SODIUM CHLORIDE 0.9% FLUSH 5 ML FLUSH IV SCH (08:35)
[2016-04-26] MEDS ORDERED: OXYC1TAB63 PO (12:02)
[2016-04-26] MEDS ORDERED: IBUP-232 PO (12:02)
--- NOTE | 2016-04-26 12:04 | HHI.DCPOC ---
Discharge Care Plan Diagnosis: (1) DIC (disseminated intravascular coagulation) (2) Placental abruption with coagulation defect (3) History of section Your Health Problems Are: Incision/Drains Goals to Promote Your Health * To prevent worsening of your condition and complications * To maintain your health at the optimal level Directions to Meet Your Goals Take your medications as prescribed Follow your dietary instruction Follow activity as directed Keep your appointments as scheduled Take your immunizations and boosters as scheduled If your symptoms worsen call your PCP, if no PCP go to Urgent Care Center or Emergency Room Smoking is Dangerous to Your Health. Avoid second hand smoke Call the 24-hour hour crisis hotline for domestic abuse at Marianna Linn MD R1 Apr 26, 2016 12:04
--- NOTE | 2016-04-26 12:22 | HHI.PR ---
Addendum to Inpatient Note Addendum Reason: Additional Documentation Additional Information Addendum: Patient was reevaluated this afternoon. She is feeling better, does not complain of any pain. Had a shower and dusty were removed with Steri strips applied, incision is clean, dry and intact. Solar Energy Systems Engineer visited patient. She is ready to go home. Patient is stable and she has no active bleeding. Will discharge patient. She'll follow up with [facility] within one [facility], patient has tried to call and had no luck getting through. She states she will call back today. Discussed with Dr. Corcoran. (Marianna Linn MD R1) Attestation Discussed discharge with resident and agree with management. (May Corcoran MD) Marianna Linn MD R1 Apr 26, 2016 12:22 May Corcoran MD Apr 27, 2016 01:25
[2016-05-01 10:28] LABS: BATH SALTS (MDPV) UR NEG (NEG); ECSTASY (MDMA) UR NEG (NEG); HEROIN (6-ACETYLMORPHINE) UR NEG (NEG); K2 SPICE UR NEG (NEG); OBMETHADONE UR NEG (NEG); OXYCODONE (PERCODAN) NEG (NEG); PHENCYCLIDINE URINE NEG (NEG)
== END 2016-04-26 13:06 | disposition home or self-care (01) | DRG 765 ==
LOC: HOBED 17:54 → H2EA 18:46 → HIME 04-23 02:00 → H2EA 04-25 13:25
PROVIDERS: ADMIT Obstetrics & Gynecology Maternal & Fetal Medicine; ATTEND Obstetrics & Gynecology Maternal & Fetal Medicine
PROC: 10D00Z1 Extraction of Products of Conception, Low, Open Approach (ICD-10-PCS; principal; 2016-04-22)
PROC: 10907ZC Drainage of Amniotic Fluid, Therapeutic from Products of Conception, Via Natural or Artificial Opening (ICD-10-PCS; 2016-04-22)
PROC: 3E0S3CZ (ICD-10-PCS; 2016-04-22)
PROC: 00HU33Z Insertion of Infusion Device into Spinal Canal, Percutaneous Approach (ICD-10-PCS; 2016-04-22)
PROC: 30233K1 Transfusion of Nonautologous Frozen Plasma into Peripheral Vein, Percutaneous Approach (ICD-10-PCS; 2016-04-22)
PROC: 30233N1 Transfusion of Nonautologous Red Blood Cells into Peripheral Vein, Percutaneous Approach (ICD-10-PCS; 2016-04-22)
PROC: 30233M1 Transfusion of Nonautologous Plasma Cryoprecipitate into Peripheral Vein, Percutaneous Approach (ICD-10-PCS; 2016-04-22)
DX: O45.023 Premature separation of placenta with disseminated intravascular coagulation, third trimester (principal); O99.12 Other diseases of the blood and blood-forming organs and certain disorders involving the immune mechanism complicating childbirth; I95.89 Other hypotension; D62 Acute posthemorrhagic anemia; K56.7 Ileus, unspecified; O36.4XX0 Maternal care for intrauterine death, not applicable or unspecified; O75.89 Other specified complications of labor and delivery; O90.81 Anemia of the puerperium; O99.89 Other specified diseases and conditions complicating pregnancy, childbirth and the puerperium; O99.333 Smoking (tobacco) complicating pregnancy, third trimester; F17.210 Nicotine dependence, cigarettes, uncomplicated; O32.1XX0 Maternal care for breech presentation, not applicable or unspecified; Z3A.32 32 weeks gestation of pregnancy; Z37.1 Single stillbirth
CPT/HCPCS: 36430; 76815; 80048; 80053; 80307; 81001; 83030; 83735; 84100; 84155; 85025; 85027; 85379; 85384; 85610; 85730; 86850; 86900; 86901; 86920; 86927; 86965; 87641; 88307; 99285; G0481; J0690; J1100; J1200; J2060; J2210; J2274; J2405; J2590; J3010; J3480; J7030; P9016; P9017; P9035; P9048; Q0163

== ENCOUNTER 2016-05-20 07:23 | Emergency (ER) | payer MEDICAID ==
[~2016-05-20] VITALS: Ht 157.5 cm; Wt 65.0 kg
[~2016-05-20 07:23] MED LIST changes: +IBUP-232 PO; +OXYC1TAB63 PO; -PROM12.54 PO; -PROM5SUP2 RECTAL; -UNIS25TA2 PO; -VITA50TA30 PO
[2016-05-20 07:26] VITALS: BP 118/74; PULSE 87; RESP 17; TEMP 97.8; O2SAT 98
--- NOTE | 2016-05-20 07:36 | PD ---
HPI Chief Complaint: Headache Time Seen by Provider: 07:36 Travel History International Travel<30 days: No Contact w/Intl Traveler<30days: No Traveled to known affect area: No [facility] Past Medical History Autoimmune Disease: Yes Diminished Hearing: No Gastrointestinal Disorders: No Ulcer: Yes ?: Not : 6 Para: 3 Miscarriage: 1 : 2 Ectopic : Yes Ovarian Cysts: Yes Dilation and Curettage (D&C): Yes Past Surgical History Gynecologic Surgery: Yes ( 04/23/16) Other Surgery: No Social History Alcohol Use: No Tobacco Use: Yes Substance Use: Yes (MARIJUANALAST USE 2 YEARS AGO ) Allergies-Medications (Allergen,Severity, Reaction): Coded Allergies: No Known Allergies (Verified , 04/22/16) Reported Meds & Prescriptions Reported Meds & Active Scripts Active Ibuprofen 600 Mg Tab 600 Mg PO Q6H PRN Oxycodone-Acetaminophen 5-325 mg Tab 1 Tab PO Q6H PRN Prenate Pixie 10-0.6-0.4-200 mg ( W/O A W/ Fe Asparto G) 1 Cap Cap Data Data Last Documented VS Vital Signs Date Time Temp Pulse Resp B/P Pulse Ox O2 Delivery O2 Flow Rate FiO2 05/20/16 07:26 97.8 87 17 118/74 98 Alla Robert May 20, 2016 07:36
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
[2016-05-20] MEDS: ACETAMIN 325 MG/BUTALBITAL 50 MG/CAFFEINE 40 MG TAB PO ONE ×2 (09:30→09:48)
[2016-05-20] MEDS ORDERED: SODIUM CHLOR 0.9% 1000 ML INJ 1,000 ML IV ONE ×2 (09:51→11:15)
--- NOTE | 2016-05-20 09:57 | PD ---
HPI Chief Complaint: Headache Time Seen by Provider: 09:51 Travel History International Travel<30 days: No Contact w/Intl Traveler<30days: No Traveled to known affect area: No History of Present Illness HPI The patient is a 30-year-old after [place] female who presents to the emergency department for headache. The patient states she awakened this morning with a headache that is located over the right frontal temporal area. The headache is throbbing, associated with nausea, vomiting, and photophobia. The patient states she does have a history of similar headaches in the past secondary to migraines. The patient states pain does rate the right temporal area, denies any posterior neck pain, fever, chills, or sweats. The patient does state that her current headache feels like her previous migraines, however , is not "as bad ". The patient does have a history of recent section secondary to demise at 32 weeks in April, subsequently had DIC and was admitted for several days. The patient has been discharged home and has been doing well on an outpatient basis. The patient denies any focal deficits of the upper or lower extremities. The patient was evaluated in the OB ED prior to coming to the emergency department for treatment of her headache. Patient's blood pressure is normal there has been no evidence of eclampsia/preeclampsia. PFSH Past Medical History Autoimmune Disease: Yes Diminished Hearing: No Gastrointestinal Disorders: No Ulcer: Yes ?: Not LMP: JUNE 2015 : 6 Para: 3 Miscarriage: 1 : 2 Ectopic : Yes Ovarian Cysts: Yes Dilation and Curettage (D&C): Yes Past Surgical History Section: Yes (EMERGENCY APR 2016) Gynecologic Surgery: Yes ( 04/23/16) Other Surgery: Yes Family History Family History: Negative Social History Alcohol Use: No Tobacco Use: Yes (black and mild cigars x2 daily) Substance Use: Yes (MARIJUANALAST USE 2 YEARS AGO ) Allergies-Medications (Allergen,Severity, Reaction): Coded Allergies: No Known Allergies (Verified , 05/20/16) Reported Meds & Prescriptions Reported Meds & Active Scripts Active No Active Prescriptions or Reported Medications Review of Systems Except as stated in HPI: all other systems reviewed are Neg General / Constitutional: No: Fever Eyes: Positive: Photophobia, No: Blurred Vision HENT: Positive: Headaches, No: Neck Pain Cardiovascular: No: Chest Pain or Discomfort Respiratory: No: Shortness of Breath Gastrointestinal: Positive: Nausea, Vomiting, No: Abdominal Pain Neurologic: Positive: Headache Physical Exam Narrative GENERAL: Awake, alert, pleasant 30-year-old female who appears her stated age. Initially examined in a darkened room per her request. SKIN: Warm and dry. HEAD: Atraumatic. Normocephalic. EYES: Pupils equal and round. Pupils are 3 mm bilateral and reactive. EOMs are intact.. ENT: No nasal bleeding or discharge. Mucous membranes pink and moist. NECK: Trachea midline. No JVD. No meningeal signs. CARDIOVASCULAR: Regular rate and rhythm. No murmur appreciated. RESPIRATORY: No accessory muscle use. Clear to auscultation. Breath sounds equal bilaterally. MUSCULOSKELETAL: No obvious deformities. No clubbing. No cyanosis. No edema. NEUROLOGICAL: Awake and alert. No obvious cranial nerve deficits. Motor grossly within normal limits. Normal speech. Nonfocal. Oriented 4. PSYCHIATRIC: Appropriate mood and affect; insight and judgment normal. Data Data Last Documented VS Vital Signs Date Time Temp Pulse Resp B/P Pulse Ox O2 Delivery O2 Flow Rate FiO2 05/20/16 12:00 60 12 112/55 100 Room Air 05/20/16 07:26 97.8 Orders Rnvj-Eecrs-Lgnq 325-50-40 Mg (Fioricet 3 (05/20/16 09:30) Ecg Monitoring (05/20/16 09:51) Iv Access Insert/Monitor (05/20/16 09:51) Oximetry (05/20/16 09:51) Sodium Chloride 0.9% Flush (Ns Flush) (05/20/16 10:00) Ketorolac Inj (Toradol Inj) (05/20/16 10:00) Prochlorperazine Inj (Compazine Inj) (05/20/16 10:00) Diphenhydramine Inj (Benadryl Inj) (05/20/16 10:00) Sodium Chlor 0.9% 1000 Ml Inj (Ns 1000 M (05/20/16 09:51) Methylprednisolone So Succ Inj (Solumedr (05/20/16 10:00) Morphine Inj (Morphine Inj) (05/20/16 11:15) Sodium Chlor 0.9% 1000 Ml Inj (Ns 1000 M (05/20/16 11:15) Ct Brain W/O Iv Contrast(Rout) (05/20/16 ) Morphine Inj (Morphine Inj) (05/20/16 13:30) Hfam-Sdirz-Kfwg 325-50-40 Mg (Fioricet 3 (05/20/16 13:30) [facility] Medical Decision Making Medical Screen Exam Complete: Yes Emergency Medical Condition: Yes Medical Record Reviewed: Yes Interpretation(s) CT of the brain reveals a unremarkable CT. Differential Diagnosis Differential diagnosis includes migraine, tension headache, cluster headache, venous sinus thrombosis, intracranial hemorrhage, glaucoma. Narrative Course IV was established, patient was placed on cardiac telemetry monitoring and continuous pulse oximetry monitoring. I reviewed the patient's previous hospitalization the medical records for her section with subsequent DIC. The patient was already evaluated by the OB ED and cleared front of a stature standpoint. No evidence of eclampsia/preeclampsia. Patient has a history of migraines with similar symptoms in the past, no pain with extraocular movements, doubt venous sinus thrombosis or acute intracranial hemorrhage as patient's DIC was last month. Therefore, patient was administered Compazine, Benadryl, Toradol, and IV fluids. The patient was reassessed at 11:10 AM, still had mild headache, therefore, was administered another liter of fluid and morphine. CT the brain is negative. The patient is reevaluated, still complaining of a mild right sided headache and some right sided neck pain, still had no meningeal signs. The patient was evaluated multiple times, appeared to be resting comfortably and sleeping. 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 She is advised to follow-up with her primary physician. Diagnosis Primary Impression: Migraine Qualified Code: G43.009 - Migraine without aura and without status migrainosus , not intractable Additional Impression: Status post Patient Instructions: General Instructions Additional Instructions: Medications as directed. Follow-up with your primary physician. Please provide the patient a copy of her CT results at discharge. Ride home with her brother. Return if symptoms worsen or progress. Med/Other Pt SpecificInfo: Prescription(s) given Scripts Ybqylkwioz-Pircbaxbwikkd-Eijxvxcv (Fioricet)50-300-40 Mg Cap1 Cap PO Q4H PRN ( HEADACHE) #12 CAP Ref 0 Prov:Jai Bean MD 05/20/16 Disposition: 01 DISCHARGE HOME Condition: Stable Jai Bean MD May 20, 2016 09:57
[2016-05-20] MEDS ORDERED: diphenhydrAMINE HCL 50 MG/ML VIAL IVP ONE (10:00)
[2016-05-20] MEDS ORDERED: KETOROLAC TROMETHAMINE 30 MG/ML (IVP) VIAL IVP ONE (10:00)
[2016-05-20] MEDS ORDERED: SODIUM CHLORIDE 0.9% FLUSH 5 ML FLUSH IVF PRN (10:00)
[2016-05-20] MEDS ORDERED: PROCHLORPERAZINE INJ 10 MG/2 ML VIAL IVP ONE (10:00)
[2016-05-20] MEDS ORDERED: methylPREDNISolone SOD SUCC 125 MG/2 ML VIAL IV PUSH ONE (10:00)
[2016-05-20 10:20] VITALS: BP 97/56; PULSE 69; RESP 12; O2SAT 100
[2016-05-20 11:00] VITALS: BP 119/59; PULSE 67; RESP 12; O2SAT 99
[2016-05-20] MEDS ORDERED: MORPHINE SULFATE 4 MG/ML INJ IV PUSH ONE ×2 (11:15→13:30)
[2016-05-20 11:30] VITALS: BP 109/60; PULSE 69; RESP 12; O2SAT 100
[2016-05-20 12:00] VITALS: BP 112/55; PULSE 60; RESP 12; O2SAT 100
--- NOTE | 2016-05-20 13:13 | RADRPT ---
EXAM DATE/TIME: 05/20/2016 12:11 [facility] COMPARISON: No previous studies available for comparison. INDICATIONS : Migraine. RADIATION DOSE: 56.36 CTDIvol (mGy) MEDICAL HISTORY : None SURGICAL HISTORY : section. ENCOUNTER: Initial ACUITY: 1 day PAIN SCALE: 4/10 LOCATION: Bilateral cranial TECHNIQUE: Multiple contiguous axial images were obtained of the head. Using automated exposure control and adj ustment of the mA and/or kV according to patient size, radiation dose was kept as low as reasonably a chievable to obtain optimal diagnostic quality images. FINDINGS: CEREBRUM: The ventricles are normal for age. No evidence of midline shift, mass lesion, hemorrhage or acute in farction. No extra-axial fluid collections are seen. POSTERIOR FOSSA: The cerebellum and brainstem are intact. The 4th ventricle is midline. The cerebellopontine angle i s unremarkable. EXTRACRANIAL: The visualized portion of the orbits is intact. SKULL: The calvaria is intact. No evidence of skull fracture. CONCLUSION: Unremarkable noncontrast CT. Juan Luis Olivares MD on May 20, 2016 at 13:10 Board Certified Radiologist. This report was verified electronically.
[2016-05-20] MEDS ORDERED: BUTA1CAP PO (13:21)
[2016-05-20] MEDS ORDERED: ACETAMIN 325 MG/BUTALBITAL 50 MG/CAFFEINE 40 MG TAB PO ONE (13:30)
[2016-05-20 16:46] VITALS: BP 112/75
== END 2016-05-20 16:50 | disposition home or self-care (01) ==
LOC: NEPB 07:23 → NEPE 16:50
DX: G43.909 Migraine, unspecified, not intractable, without status migrainosus (principal)
CPT/HCPCS: 70450; J0780; J1200; J1885; J2270; J2930; J7030; 96361; 96374; 96375